=== PATIENT | male | born 1945 | race Caucasian/White ===

== ENCOUNTER → 2017-10-23 15:34 | Outpatient (CLI) | payer MEDICARE, SELFPAY ==
--- NOTE | 2017-10-23 15:37 | CT_ITS ---
STUDY: CT ABDOMEN AND PELVIS WITH CONTRAST REASON FOR EXAM: Male, 72 years old. Prostate cancer, hernia repair, CABG RADIATION DOSAGE (If Supplied By Facility): CTDIvol = ( 20.60 ) mGy, DLP = ( 930.24 ) mGycm TECHNIQUE: Transaxial images were obtained from the dome of the diaphragm to the symphysis pubis without oral contrast. 100ML ml of Isovue 300 contrast was administered. Sagittal and coronal images were reconstructed. Individualized dose optimization techniques were used for this CT. COMPARISON: None. FINDINGS: Nonspecific peripheral left lung base nodular densities up to 5 mm. The visualized portions of the heart are within normal limits. Normal liver. Cholelithiasis. No significant dilatation of the extrahepatic biliary system. Normal spleen. Normal pancreas. Normal bilateral adrenal glands. Normal right kidney. Normal left kidney. Small hiatal hernia. Normal small intestine. Normal colon. The appendix is not visualized. Mildly calcified abdominal aorta. Normal inferior vena cava. Normal retroperitoneum. Normal urinary bladder. The prostate is 3.7 x 4.9 cm Normal abdominal wall. Degenerative vertebral changes with scoliosis. Grade 1 spondylolisthesis at L3-4. CT/Abdomen/Pelvis WITH Contrast IMPRESSION: Nonspecific left lung base nodular densities. Cholelithiasis. Small hiatal hernia. Electronically Signed: Kenneth Ricci DO at 22:25 EST Tel [phone], Service support ,
[2017-10-23 17:26] LABS: CREATININE FINGERSTICK 1.1 mg/dL (0.70-1.30)
== END ==
PROVIDERS: Family Provider Family Medicine; PCP Family Medicine; Visit Provider Urology
DX: C61 Malignant neoplasm of prostate (principal)
CPT/HCPCS: 74177; Q9967

== ENCOUNTER → 2017-10-27 08:17 | Outpatient (CLI) | payer MEDICARE, SELFPAY ==
--- NOTE | 2017-10-27 08:19 | NM_ITS ---
CLINICAL: 72-year-old male with reported history of recent diagnosis of primary prostate carcinoma. WHOLE BODY 99m Tc MDP RADIONUCLIDE BONE SCINTIGRAPHY COMPARISON: CT of the abdomen-pelvis report 10/23/2017 FINDINGS: Following the intravenous administration of 27.0 mCi of 99m Tc MDP, whole body bone images reveal: 1. Increased radiopharmaceutical concentration is identified in the acromioclavicular and glenohumeral compartments of both shoulders, sternoclavicular compartment of the left shoulder, mid cervical spine posteriorly on the right, second-fifth lumbar vertebra posteriorly on the left and right, bilateral wrist articulations, the left knee. 2. The remaining skeletal structures are scintigraphically unremarkable with normal-appearing renal images and urinary bladder activity identified. There is calcification of the bilateral costochondral junctions. NM/Bone Scan Whole Body IMPRESSION: 1. The increased radiopharmaceutical concentration defined in the bilateral shoulders, cervical and lumbar spine, right and left wrist articulations, the left knee is most consistent with degenerative arthritis. 2. There is no definitive typical scintigraphic evidence of skeletal metastatic disease on the current evaluation. Electronically Signed: Uche Arias DO at 10:28 EST Tel , Service support ,
== END ==
PROVIDERS: Family Provider Family Medicine; PCP Family Medicine; Visit Provider Urology
DX: C61 Malignant neoplasm of prostate (principal)
CPT/HCPCS: 78306

== ENCOUNTER → 2018-01-18 06:50 | Outpatient (CLI) | payer MEDICARE, SELFPAY ==
--- NOTE | 2018-01-18 06:52 | ECHOD_ITS ---
Reason For Study: S/P CABG and MVR Procedure This was a 2D Doppler, Color Flow transthoracic echocardiogram. Exam performed in department. Left Ventricle Normal LV size. The estimated ejection fraction is 55 %. Transmitral and pulmonary venous doppler flow suggestive of elevated left atrial pressure. Transmitral diastolic flow velocities suggest mild (stage 1) diastolic dysfunction (reversed pattern). No regional wall motion abnormalities noted. Right Ventricle Normal RV size. Normal systolic function. Atria The left atrium is moderately enlarged. Normal right atrium. Mitral Valve Bileaflet diffuse mitral valve thickening. Mild-Moderate (1-2+) eccentric mitral valve insufficiency. Tricuspid Valve Normal tricuspid valve. Mild tricuspid valve insufficiency. Aortic Valve Trisinus/trileaflet aortic valve. Moderate diffuse aortic valve thickening. Pulmonic Valve The pulmonic valve is not well visualized. Great Vessels Normal aortic root. The pulmonary artery is normal size. Normal inferior vena cava. Pericardium/Pleural No pericardial effusion. MMode/2D Measurements & Calculations LVIDd: 4.6 cm IVSd: 1.1 cm LVOT diam: 2.5 cm LVIDs: 3.2 cm LVPWd: 1.1 cm LVOT area: 4.8 cm2 RVDd: 4.1 cm FS: 31.0 % Ao root diam: 3.6 cm LAV(MOD-bp): 95.3 ml LA A4 area: 25.4 cm2 LA dimension: 4.8 cm LAV(MOD-bp) Indexed: 47.3 ml/m2 LAV(MOD-sp2): 111.4 ml LAV(MOD-sp4): 85.8 ml RA A4 area: 17.5 cm2 Doppler Measurements & Calculations MV E max steve: 73.3 cm/sec Lat Peak E' Steve: 5.4 cm/sec Med Peak E' Steve: 5.0 cm/sec MV A max steve: 87.9 cm/sec E/E' lat: 13.7 E/E' med: 14.8 MV E/A: 0.83 Ao V2 max: 186.6 cm/sec LV V1 max: 91.8 cm/sec SV(LVOT): 99.4 ml Ao max P.9 mmHg LV V1 max P.4 mmHg Ao V2 mean: 136.0 cm/sec LV V1 mean P.8 mmHg Ao mean P.0 mmHg LV V1 mean: 62.6 cm/sec Ao V2 VTI: 39.2 cm LV V1 VTI: 20.7 cm LIN(I,D): 2.5 cm2 LIN(V,D): 2.4 cm2 PA V2 max: 131.0 cm/sec PI end-d steve: 76.1 cm/sec TR max steve: 212.7 cm/sec TR max P.2 mmHg Interpretation Summary Normal LV size. The estimated ejection fraction is 55 %. Transmitral and pulmonary venous doppler flow suggestive of elevated left atrial pressure. Mild-Moderate (1-2+) eccentric mitral valve insufficiency. Mild tricuspid valve insufficiency. Ordering Physician: Cristian Ramirez Referring Physician: Harris Sanchez Performed By: Norma Chatman, ILENE, RVT
--- NOTE | 2018-01-18 17:09 | STRESSREP ---
Stress Test Report Pharmacologic myocardial perfusion stress test. 72-year-old man for preoperative cardiac evaluation. Stress protocol: Resting EKG demonstrates normal sinus rhythm with rate of 65 bpm resting blood pressure is 162/100 mmHg. 0.4 mg regadenoson was infused per usual protocol followed by rapid intravenous saline flush injection continuous EKG monitoring was performed. The maximum heart rate attained was 99 bpm which was 66% of maximum predicted heart rate the maximum workload attained was 1 metabolic equivalent. At rest there were no ST or T-wave changes noted suggest abnormal flow reserve at peak infusion no ST or T-wave changes were noted suggest abnormal flow reserve. No clinical angina was noted. Myocardial perfusion protocol: 11.4 mCi of technetium 99m sestamibi was injected at rest. 0.4 mg regadenoson was infused per usual protocol. At peak infusion 33.1 mCi of technetium 99m sestamibi was injected stress images were obtained stress and rest images were reconstructed and compared in the short axis vertical long and horizontal long axis. Gated images were also obtained. Perfusion SPECT analysis: Review of the stress images demonstrate normal uptake of tracer noted in all areas of the myocardium. The resting images similarly demonstrate normal uptake of tracer noted in all areas of the myocardium. No areas of reversibility are noted suggest ischemia no previous infarct is noted. Gated SPECT analysis: The gated ejection fraction is estimated to be 45%. Conclusion: Normal pharmacologic myocardial perfusion stress test with no evidence of ischemia. Borderline left ventricular function.
== END ==
PROVIDERS: Family Provider Family Medicine; PCP Family Medicine; Visit Provider Internal Medicine Cardiovascular Disease
DX: I48.0 Paroxysmal atrial fibrillation (principal); I25.10 Atherosclerotic heart disease of native coronary artery without angina pectoris; Z95.1 Presence of aortocoronary bypass graft; Z95.2 Presence of prosthetic heart valve
CPT/HCPCS: 78452; 93017; 93306; A9500; A4216; J2785

== ENCOUNTER 2018-01-20 05:45 | Inpatient (IN) | payer MEDICARE, SELFPAY ==
[2018-01-14 11:17] VITALS: BP 126/84; PULSE 62; RESP 16; TEMP 36.8; O2SAT 100; BMI 25.2
--- NOTE | 2018-01-14 11:34 | SDCEKG_ITS ---
Test Reason : Blood Pressure : / mmHG Vent. Rate : 059 BPM Atrial Rate : 059 BPM P-R Int : 178 ms QRS Dur : 098 ms QT Int : 440 ms P-R-T Axes : 073 -03 026 degrees QTc Int : 435 ms Sinus bradycardia with occasional Premature ventricular complexes Possible Inferior infarct , age undetermined Abnormal ECG Confirmed by ALDO ROSARIO, ROHAN ([id number]), film editor supervisor ANGELA FALCON ([id number]) on 01/19/2018 3:36:58 PM Referred By: Nathaniel Corley Confirmed By:ROHAN CARLSON MD
[2018-01-14 12:19] LABS: Hematocrit 40.5 % (40-54); Hemoglobin 13.3 g/dl (13.0-16.5); Mean Corp Hgb Conc 32.8 g/gl (32-36); Mean Corpuscular Hgb 27.7 pg (27.0-32.0); Mean Corpuscular Volume 84.4 fL (80-94); Mean Platelet Vol. 10.5 fl (6.2-12.0); Platelet Count 209 K/mm3 (150-450); RBC Distribution Width CV 14.5 % (11.6-14.6); RBC Distribution Width SD 44.1 fl (35.1-43.9); White Blood Count 5.6 K/mm3 (4.4-11.0)
[2018-01-14 12:21] LABS: Scan Indicated on CBC? Y/N NO
[2018-01-14 12:23] LABS: International Normalized Ratio 1.1; Prothrombin Time (Protime)PT. 13.9 SECONDS (11.7-14.9)
[2018-01-14 12:48] LABS: AST(SGOT) 25 U/L (15-37); Alanine Aminotransfer ALT/SGPT 30 U/L (16-61); Albumin, Serum 3.4 g/dL (3.2-5.0); Alkaline Phosphatase 56 U/L (45-117); Anion Gap 7 (5-15); BUN 17 mg/dL (7-18); Bilirubin, Direct 0.17 mg/dL (0.00-0.30); Calcium,Total 8.7 mg/dL (8.5-10.1); Chloride 110 mmol/L (98-107); Creatinine, Serum 1.06 mg/dL (0.70-1.30); EST Glomerular Filtration Rate 73 mL/min (>60); Est Glom Filt Rate - Afr Amer 88 mL/min (>60); Estimated Creatinine Clearance 68.08 ml/min; Globulin 3.4 g/dL (2.2-4.2); Glucose 95 mg/dL (74-106); Potassium 4.7 mmol/L (3.5-5.1); Protein, Total 6.8 g/dL (6.4-8.2); Sodium Level 143 mmol/L (136-145); Thyroid Stim Hormone (TSH) 0.09 uIU/mL (0.358-3.74)
[2018-01-20] VITALS (14 sets, daily range): BP systolic 105–149; BP diastolic 72–93; PULSE 61–77; RESP 15–18; TEMP 36.4–37.1; O2SAT 94–98; BMI 25.2; BMI 25.1
--- NOTE | 2018-01-20 | IMM_PTH ---
PATIENT: KERRIE AVILES LOC: MS3 U#:[id number] AGE/SX: 72/M ROOM: MS317 RE01/20/[address]: Dr. Nathaniel Corley MD : 1945 BED: 1 DIS: 01/22/2018 SPEC #: [id number] RECD: 02/04/18 09:29 STATUS: PRAVEEN REXin #: [id number] KODI: 01/20/18 00:[address]: Nathaniel Corley DEPT: IMMUNOHISTOCHEMISTRY RECD BY: Natalie Hutchison ENTERED: 02/04/18 09:31 SP TYPE: IMMUNO OTHR DR: Dr. Harris Sanchez MD Tissues: A - Prostate, NOS Procedures: CD31 (add) CD34 (add) PSA (add) Factor VIII (initial) PHYSICIAN & INSTITUTION [place] [id number] SPECIMEN INFORMATION: Tissue Source: A ? Prostate, radical prostatectomy Clinical Info: Prostate cancer, elevated PSA Specimen Number: [id number] CPT code: 52681, 76722 x3 METHODOLOGY: Deparaffinized sections of prefer/formalin-fixed tissue or PAP/DQ stained slides are incubated with monoclonal/polyclonal antibodies/oligonucleotide probes. Localization is made via biotin free immunoperoxidase method. Appropriate controls are performed and reacted as expected. Results on target cell population are indicated in the following table: RESULTS: ANTIBODY / CLONE RESULT Block A3 Factor VIII (R Ag) negative CD31 (KIM/70A) * PSA (ER-PR8) positive CD34 (QBEnd-10) negative *?noncontributory These tests were developed and their performance characteristics determined by [facility]. They may not have been cleared or approved by the U.S. Food and Drug Administration. The FDA has determined that such clearance or approval is not necessary. INTERPRETATION: A. Prostate, radical prostatectomy: No definitive evidence of vascular invasion seen. AM:katarzyna 02/05/18 Case has been reviewed in consultation with Dr. Ellison who concurs with the above diagnosis. IDC:[id number]
--- NOTE | 2018-01-20 07:30 | PROST_PTH ---
PATIENT: KERRIE AVILES LOC: MS3 U#:[id number] AGE/SX: 72/M ROOM: FL317 RE01/20/[address]: Dr. Nathaniel Corley MD : 1945 BED: 1 DIS: 01/22/2018 SPEC #: [id number] RECD: 01/20/18 11:48 STATUS: PRAVEEN SIMON #: [id number] KODI: 01/20/18 07:[address]: Nathaniel Corley DEPT: SURGICAL PATHOLOGY RECD BY: Nicki Dao ENTERED: 01/20/18 12:49 SP TYPE: PROSTATE OTHR DR: Dr. Harris Sanchez MD Tissues: A - Prostate, NOS B - Lymph node of pelvis, NOS C - Lymph node of pelvis, NOS D - Adipose tissue Procedures: Surgery Specimen Level IV Surgery Specimen Level V HEADER OPERATION: Laparoscopic robotic radical prostatectomy PRE-OP DIAGNOSIS: Prostate cancer; elevated PSA TISSUE SUBMITTED: A ? Prostate, B ? Right pelvic lymph node, C ? Left pelvic lymph node, D ? Fat over prostate MICROSCOPIC DIAGNOSIS A. Prostate, radical prostatectomy: Adenocarcinoma. See cancer checklist below. B. Right pelvic lymph node, biopsy: One out of one lymph node negative for carcinoma. C. Left pelvic lymph node, biopsy: One out of one lymph node negative for carcinoma. D. Fat over prostate, biopsy: Mature adipose tissue. No evidence of malignancy. AM:katarzyna 01/22/18 COMMENT PROSTATE CANCER (RADICAL) SUMMARY: Procedure ? radical prostatectomy Prostate size ? 4.4 x 4.2 x 3.5 cm Prostate weight ? 41.6 gm Lymph node sampling ? pelvic lymph node dissection (2 out of 2 negative for carcinoma) Histologic type - adenocarcinoma Histologic grade ([place] Pattern): Primary pattern - 4 Secondary pattern - 3 Tertiary pattern - 5 Total Kimberley score - 7 Tumor Quantitation: Tumor size - 4 x 2 x 1.5 cm Extraprostatic extension ? present, focal Seminal vesicle invasion ? present (bilateral) Margins ? margins are uninvolved by invasive carcinoma. Treatment effect on carcinoma ? not identified Lymph-Vascular invasion ? not identified Perineural invasion ? present (extensive) Regional lymph nodes - 2 Number examined - 2 Number involved - 0 Distant metastasis - unknown Additional pathologic findings ? benign nodular hyperplasia and focal HGPIN Ancillary studies ? not performed PATHOLOGIC STAGE: pT3b N0 Mx The above summary is in compliance with [employer] [place] [employer] (CAP) Cancer Protocols Checklist and [place] [employer] Committee on Cancer (AJCC), Staging Manual, 8th Ed. MICROSCOPIC DESCRIPTION Slides are reviewed. GROSS DESCRIPTION A - Received in fixative is one container labeled with the patient's name and designated prostate. The specimen consists of a prostate with attached right and left seminal vesicles and vas deferens. The specimen measures 6 cm in greatest dimension. The prostate measures 4.2 cm superior-inferiorly, 4.4 cm transversely, and 3.5 cm anterior-posteriorly. The apex of the gland is conical in shape. On palpation, no mass lesions are identified. The gland weighs 41.6 gm. The specimen is differentially inked as follows: anterior ? red, right half ? blue, left half ? green, and posterior portion of the entire gland in black. The gland is cut from apex of gland to base of gland at approximately 3 to 4 mm intervals. Sections reveal white cut surfaces. No distinct gross mass lesion is seen. Distribution Operations Supervisor sections are submitted as follows: 1 ? apex (distal urethral margin shave), 2 ? bladder shave (proximal urethra margin), 3 ? right and left seminal vesicles, 4 & 5 ? most distal prostatic section, 6 & 7 ? apex of gland, 913 ? mid portion of gland, 14-20 ? basal portion of gland. B - Received in fixative is one container labeled with the patient's name and designated right pelvic lymph node. The specimen consists of an irregular fragment of yellow soft tissue measuring 2.5 x 1.5 x 1 cm. The specimen is sectioned and totally submitted in two cassettes. C - Received in fixative is one container labeled with the patient's name and designated left pelvic lymph node. The specimen consists of an irregular fragment of yellow soft tissue measuring 2.5 x 1.5 x 0.6 cm. The specimen is bisected along its larger axis and totally submitted in one cassette. D - Received in fixative is one container labeled with the patient's name and designated fat over prostate. The specimen consists of an irregular fragment of yellow fatty tissue measuring 1.5 x 1 x 0.2 cm. The specimen is totally submitted in one cassette. / AM:katarzyna 01/21/18 TC:0 CPT: 25459, 92669 x3
[2018-01-20] MEDS: Cefazolin 2 GM in 0.9% Normal Saline 100 ML IV (07:33)
[2018-01-20] MEDS: Bupivacaine Mpf 0.5% 30 ML VIAL (11:03)
--- NOTE | 2018-01-20 11:11 | PCM.OPRPT ---
Report of Operation Date of Procedure: 01/20/18 Pre-Operative Diagnosis: Prostate cancer, BPH with obstruction Post-Operative Diagnosis: Same Surgery/Procedure Performed:: Laparoscopic robotic assisted radical prostatectomy, bilateral pelvic lymph node dissection, suture suspension of the urethra, EMG monitoring of the pelvic nerves and sphincter Description of Surgical Findings:: 72-year-old male who had a high volume of prostate cancer [place] disease we talked about the options of management for his prostate cancer including radiation therapy and hormone ablation therapy. Talked about the options of management we talked about the side effects of surgery including incontinence loss of erections failure to cure his cancer he understands he may need such as more treatments of the cancer persists radiation and hormone therapy. 72-year-old male taken back to the operating room after smooth induction of general anesthesia he was placed supine on the table and will place him in lithotomy for robotic prostatectomy. Abdomen was shaved prepped and draped in usual sterile fashion insufflated the peritoneum with CO2 gas placed the camera trocar right and left arm trochars air seal port and suction trocar. I then dissected the posterior aspect of the prostate dissected the seminal vesicles and vas deferens on both sides, dropped the bladder and created the space of Retzius, incised the lateral pelvic fascia and dissected all the way up to the apex of the prostate we place a stitch in the dorsal vein. I then dissected the lymph nodes on the right side and the lymph nodes in the left side is a complete dissection. I then transected between the prostate and the bladder coming down to the urethra pulled the catheter up transected posterior between the prostate and the bladder on the right side we then clipped the pedicle to the prostate I then released the neurovascular bundle on the right side and released it all the way to the apex. Went to the left side clipped the pedicle of the prostate in the left side and released the neurovascular bundle all the way to the left side. We then placed electrodes in the pelvic sidewall checked for the pudendal nerve and pelvic nerves and these were intact after the dissection we then tacked the urethra and the repeat urethra was still intact with good response. I then completed the suture suspension of the urethra to prevent incontinence this was done from the urethra at the 6:00 to the 12 o'clock position over a catheter between the bladder neck and urethra after suspending the urethra up I then checked and the anastomosis for leakage and there was a little bit leakage on the right side put an extra stitch checked again there is another little leakage to check another stitch. After completing this anastomosis then the prostate was extracted through the umbilical port we closed the 1012 trocar with a Rob Campo stitch placed a drain in the pelvis patient's anesthetic was reversed and is taken back to PACU in good condition. Type of Anesthesia:: General Drains: BENAVIDEZ, ISABELLE DRAIN. - Admit VTE Documentation VTE Present on Admission: No VTE Mechan Device Prophylaxis: SCD's VTE Pharm Prophylaxis ordered?: No Reason prophylaxis not ordered:: Treatment Not Indicated
[2018-01-20] MEDS: Ketorolac 15 MG/ML Vial IV ×3 (12:16→23:59)
[2018-01-20] MEDS: Lactated Ringers 1,000 ML 125 ML IV ×2 (12:40→21:23)
[2018-01-20] MEDS: Acetaminophen 500 MG Tablet PO ×3 (14:57→21:30)
[2018-01-20] MEDS: Ciprofloxacin 400 MG/200 ML BAG 200 MG IV ×2 (14:57→21:23)
[2018-01-20] MEDS: 0.9% NaCl Peripheral Flush Adult/Peds IV (18:10)
[2018-01-20] MEDS: Atorvastatin Calcium 20 MG Tablet PO (21:24)
[2018-01-20] MEDS: Metoprolol Tartrate 25 MG Tablet 12.5 MG PO (21:25)
[2018-01-21] VITALS (8 sets, daily range): BP systolic 126–133; BP diastolic 80–89; PULSE 71–81; RESP 16–18; TEMP 36.8–37.6; O2SAT 92–97
[2018-01-21] MEDS: Acetaminophen 500 MG Tablet PO ×6 (02:44→22:08)
[2018-01-21 06:06] LABS: Hemoglobin 11.9 g/dl (13.0-16.5); Mean Corp Hgb Conc 33.1 g/gl (32-36); Mean Corpuscular Hgb 27.9 pg (27.0-32.0); Mean Corpuscular Volume 84.5 fL (80-94); Mean Platelet Vol. 10.1 fl (6.2-12.0); Platelet Count 162 K/mm3 (150-450); RBC Distribution Width CV 14.1 % (11.6-14.6); RBC Distribution Width SD 42.7 fl (35.1-43.9); Red Blood Count 4.26 M/mm3 (4.6-6.2); White Blood Count 7.4 K/mm3 (4.4-11.0)
[2018-01-21 06:11] LABS: Scan Indicated on CBC? Y/N NO
[2018-01-21] MEDS: Ketorolac 15 MG/ML Vial IV ×3 (06:11→18:15)
[2018-01-21] MEDS: Lactated Ringers 1,000 ML 125 ML IV ×3 (06:11→22:09)
[2018-01-21] MEDS: Levothyroxine 50 MCG Tablet PO (06:11)
[2018-01-21 06:23] LABS: Anion Gap 8 (5-15); BUN 14 mg/dL (7-18); BUN/Creat Ratio 14.1 RATIO (10-20); Calcium,Total 8.3 mg/dL (8.5-10.1); Chloride 107 mmol/L (98-107); Creatinine, Serum 0.99 mg/dL (0.70-1.30); EST Glomerular Filtration Rate 79 mL/min (>60); Est Glom Filt Rate - Afr Amer 95 mL/min (>60); Estimated Creatinine Clearance 72.89 ml/min; Glucose 99 mg/dL (74-106); Potassium 4.3 mmol/L (3.5-5.1); Sodium Level 140 mmol/L (136-145)
[2018-01-21] MEDS: Multivitamins,Therapeutic Tablet 1 TABLET PO (08:17)
[2018-01-21] MEDS: Metoprolol Tartrate 25 MG Tablet 12.5 MG PO ×2 (09:17→22:09)
[2018-01-21] MEDS: Lisinopril 2.5 MG Tablet PO (09:17)
[2018-01-21] MEDS: 0.9% NaCl Peripheral Flush Adult/Peds IV ×2 (13:12→18:15)
[2018-01-21] MEDS: Atorvastatin Calcium 20 MG Tablet PO (22:08)
[2018-01-22] MEDS: Acetaminophen 500 MG Tablet PO ×4 (02:54→15:08)
[2018-01-22 03:02] VITALS: BP 137/94; PULSE 73; RESP 18; TEMP 36.6; O2SAT 92
[2018-01-22] MEDS: Levothyroxine 50 MCG Tablet PO (05:55)
[2018-01-22] MEDS: Lactated Ringers 1,000 ML 125 ML IV (05:55)
[2018-01-22 07:57] VITALS: O2SAT 93
--- NOTE | 2018-01-22 08:35 | PCM.PROGNOTE ---
Subjective: Postoperative day #2 status post a radical prostatectomy still has not passed gas abdomen is slightly distended but no nausea or vomiting tolerating a little bit of solid foods but not very much. Pain is under control no fevers or chills - Physical Exam General: Alert, Oriented x3, Cooperative HEENT: Atraumatic, PERRLA, EOMI, Normocephalic Neck: Supple, No JVD, Negative Carotid Bruits Lungs: Clear to auscultation, Normal air movement Cardiovascular: Regular rate, No murmurs Abdomen: Bowel Sounds Present, Soft, Non Tender Extremities: No edema, Capillary Refill Less than 3 Seconds Skin: No rashes, No breakdown Musculoskeletal: No Tenderness to Palpation of Joints or Extremities Neurological: Cranial nerves II-XII grossly intact Psych/Mental Status: Normal Affect, Appropriate Vital Signs Temp Pulse Resp BP Pulse Ox 97.8 F 73 18 137/94 H 93 01/22/18 03:02 01/22/18 03:02 01/22/18 03:02 01/22/18 03:02 01/22/18 07:57 Oxygen Delivery Method Room Air Weight: 81.647 kg Body Mass Index (BMI) 25.1 Intake and Output for Last 24 Hours 01/20/18 01/21/18 01/22/18 23:59 23:59 23:59 Intake Total 3791 / 3791 3012 / 3012 2138 / 2138 Output Total 587 / 587 544 / 544 670 / 670 Balance 3204 / 3204 2468 / 2468 1468 / 1468 Medical Necessity - Tobacco Use Smoking Status: Never smoker Assessment/Plan 72-year-old male status post radical prostatectomy, Dulcolax suppository today, ambulate, possible discharge later today if starts moving his bowels or passes gas.
[2018-01-22 09:00] VITALS: BP 136/86; PULSE 82; RESP 18; TEMP 36.5; O2SAT 95
[2018-01-22] MEDS: Lisinopril 2.5 MG Tablet PO (09:04)
[2018-01-22] MEDS: Bisacodyl 10 MG Suppository RECTAL (09:04)
[2018-01-22] MEDS: Multivitamins,Therapeutic Tablet 1 TABLET PO (09:04)
[2018-01-22 09:06] VITALS: PULSE 82
[2018-01-22] MEDS: Metoprolol Tartrate 25 MG Tablet 12.5 MG PO (09:06)
[2018-01-22 14:20] VITALS: BP 137/92; PULSE 67; RESP 18; TEMP 36.3; O2SAT 92
--- NOTE | 2018-01-22 16:46 | PCM.DC.URO ---
Discharge Diet: Light diet - advance as tolerated Discharge Activity: May Not Drive, May not drive while taking narcotic pain medications., May Shower May shower in (days): 1 Lifting Restrictions: no lifting. Call your doctor if your incision/area has: Continuous Slow Oozing, Sudden Increased Bleeding, Increased Pain/ Swelling, Increased Redness, Foul Smelling Discharge, Swelling at the incision site Call your doctor if you observe: Fever of 101 or Higher, Inability to have a bowel movement, Shortness of breath, Chest pain, Uncontrolled pain Suture Line Care: Avoid Pulling/Pushing, Avoid Pinching/Bending Instructions: Discharge Instructions for Radical Prostatectomy Allergies/Adverse Reactions: Allergies Penicillins [PCN] Allergy (Verified 01/15/18 13:37) Other Medications to take at Discharge Levothyroxine [Synthroid] 50 mcg PO DAILY 01/14/18 Metoprolol Tartrate [Lopressor (beta suyapa)] 12.5 mg PO BID 01/14/18 Multivitamin [Multiple Vitamins] 1 ea PO DAILY 01/14/18 rosuvastatin 10 mg tablet 10 mg PO DAILY tab 01/15/18 Lisinopril [Zestril] 2.5 mg PO QDAY 01/20/18 Ciprofloxacin [Cipro] 500 mg PO BID #20 tab 01/22/18 Docusate Sodium [Colace] 100 mg PO BID #20 cap 01/22/18 Hydrocodone/Acetaminophen [[place] 5-325 Tablet] 1 ea PO Q4H PRN PRN 5 Days #14 tab 01/22/18 The following prescriptions were given: Hydrocodone/Acetaminophen [[place] 5-325 Tablet] 1 ea PO Q4H PRN PRN 5 Days #14 tab PRN Reason: Pain Ciprofloxacin [Cipro] 500 mg PO BID #20 tab Docusate Sodium [Colace] 100 mg PO BID #20 cap Primary Care Physician: Harris Sanchez MD [Primary Care Provider] - Please Follow Up With: Nathaniel Corley MD When: January 28 at 9:00am
[2018-01-22 16:49] VITALS: BP 145/75; PULSE 69; RESP 18; TEMP 36.7; O2SAT 94
--- NOTE | 2018-01-22 16:50 | DCINST_ITS ---
Discharge Diet: Light diet - advance as tolerated Discharge Activity: May Not Drive, May not drive while taking narcotic pain medications., May Shower May shower in (days): 1 Lifting Restrictions: no lifting. Call your doctor if your incision/area has: Continuous Slow Oozing, Sudden Increased Bleeding, Increased Pain/ Swelling, Increased Redness, Foul Smelling Discharge, Swelling at the incision site Call your doctor if you observe: Fever of 101 or Higher, Inability to have a bowel movement, Shortness of breath, Chest pain, Uncontrolled pain Suture Line Care: Avoid Pulling/Pushing, Avoid Pinching/Bending Instructions: Discharge Instructions for Radical Prostatectomy Allergies/Adverse Reactions: Allergies Penicillins [PCN] Allergy (Verified 01/15/18 13:37) Other Medications to take at Discharge Levothyroxine [Synthroid] 50 mcg PO DAILY 01/14/18 Metoprolol Tartrate [Lopressor (beta suyapa)] 12.5 mg PO BID 01/14/18 Multivitamin [Multiple Vitamins] 1 ea PO DAILY 01/14/18 rosuvastatin 10 mg tablet 10 mg PO DAILY tab 01/15/18 Lisinopril [Zestril] 2.5 mg PO QDAY 01/20/18 Ciprofloxacin [Cipro] 500 mg PO BID #20 tab 01/22/18 Docusate Sodium [Colace] 100 mg PO BID #20 cap 01/22/18 Hydrocodone/Acetaminophen [[place] 5-325 Tablet] 1 ea PO Q4H PRN PRN 5 Days #14 tab 01/22/18 The following prescriptions were given: Hydrocodone/Acetaminophen [[place] 5-325 Tablet] 1 ea PO Q4H PRN PRN 5 Days #14 tab PRN Reason: Pain Ciprofloxacin [Cipro] 500 mg PO BID #20 tab Docusate Sodium [Colace] 100 mg PO BID #20 cap Primary Care Physician: Harris Sanchez MD [Primary Care Provider] - Please Follow Up With: Nathaniel Corley MD When: January 28 at 9:00am
--- NOTE | 2018-01-22 16:52 | DS.PCM_ITS ---
Discharge Date and Diagnosis Date of Admission: 01/20/18 Date of Discharge: 01/22/18 - Secondary Discharge Diagnosis Chronic Problems (Last Reviewed 01/15/18 @ 14:04 by Cristian Ramirez MD) Nonrheumatic tricuspid (valve) insufficiency (Chronic) mild per echo 01/18/18 Nonrheumatic mitral (valve) insufficiency (Chronic) Mild to moderate (1-2+) per echo 01/18/18 Paroxysmal atrial fibrillation (Chronic) PVCs (premature ventricular contractions) (Chronic) Ischemic cardiomyopathy (Chronic) History of mitral valve repair (Chronic ~12/13/15) with posterior pericardial annuloplasty ring, hx mitral regurgitation Heart disease, unspecified (Chronic) Atherosclerotic heart disease of [place] coronary artery without angina pectoris (Chronic) BETANCOURT to LAD, Free PREETHI to Lateral Circumflex 12/13/2015 at [place]. H/O coronary artery bypass surgery (Chronic ~12/13/15) BETANCOURT to LAD, Free PREETHI to Lateral Circumflex 12/13/2015 at [place]. Hospital Course and Treatment Operations: - - Robotic radical prostatectomy Procedures: None Summary of Care Provided: The patient is a 72 year old male with prostate cancer who underwent a robotic radical prostatectomy postoperative day #1 ISABELLE output was normal and low, ISABELLE was removed on postoperative day #2 on postoperative day #2 he was given a suppository was unable to pass gas have liquid bowel movement abdomen is soft slightly distended tolerating regular food. Diet was somewhat suppressed could not tolerate a full meal but he was taking liquids and solids. Urine was clear Belle catheter in place. We will discharge him home with instructions to slowly advance diet. He will start with a liquid diet and slowly moved to a solid diet once his bowels move and he passes more gas. He will go home with a prescription for [place], Colace, and Cipro and will give him a follow-up next week to remove the catheter. He will go home with a catheter today. Discharge Diet: Light diet - advance as tolerated Discharge Activity: May Not Drive, May not drive while taking narcotic pain medications., May Shower May shower in (days): 1 Call your doctor if your incision/area has: Continuous Slow Oozing, Sudden Increased Bleeding, Increased Pain/ Swelling, Increased Redness, Foul Smelling Discharge, Swelling at the incision site Call your doctor if you observe: Fever of 101 or Higher, Inability to have a bowel movement, Shortness of breath, Chest pain, Uncontrolled pain Suture Line Care: Avoid Pulling/Pushing, Avoid Pinching/Bending Home Medications: Medications to take at Discharge Levothyroxine [Synthroid] 50 mcg PO DAILY 01/14/18 Metoprolol Tartrate [Lopressor (beta suyapa)] 12.5 mg PO BID 01/14/18 Multivitamin [Multiple Vitamins] 1 ea PO DAILY 01/14/18 rosuvastatin 10 mg tablet 10 mg PO DAILY tab 01/15/18 Lisinopril [Zestril] 2.5 mg PO QDAY 01/20/18 Ciprofloxacin [Cipro] 500 mg PO BID #20 tab 01/22/18 Docusate Sodium [Colace] 100 mg PO BID #20 cap 01/22/18 Hydrocodone/Acetaminophen [[place] 5-325 Tablet] 1 ea PO Q4H PRN PRN 5 Days #14 tab 01/22/18 Following Prescrptions Were Given to Patient: Hydrocodone/Acetaminophen [[place] 5-325 Tablet] 1 ea PO Q4H PRN PRN 5 Days #14 tab PRN Reason: Pain Ciprofloxacin [Cipro] 500 mg PO BID #20 tab Docusate Sodium [Colace] 100 mg PO BID #20 cap Primary Care Physician: Harris Sanchez MD [Primary Care Provider] - Please Follow Up With: Nathaniel Corley MD When: January 28 at 9:00am Patient Instructions: Discharge Instructions for Radical Prostatectomy Medical Necessity - Tobacco Use Smoking Status: Never smoker Meaningful Use Info Meaningful Use Diagnoses (Choose all that apply): None applicable
== END 2018-01-22 17:34 | disposition home or self-care (01) | DRG 707 ==
LOC: ACINP 09:26 → MS3 09:59
PROVIDERS: Admitting Provider Urology; Family Provider Family Medicine; PCP Family Medicine; Visit Provider Urology
PROC: 0VT04ZZ Resection of Prostate, Percutaneous Endoscopic Approach (ICD-10-PCS; CPT 55866; principal; 2018-01-20 07:10)
DX: C61 Malignant neoplasm of prostate (principal); N13.8 Other obstructive and reflux uropathy; N40.1 Benign prostatic hyperplasia with lower urinary tract symptoms; R35.1 Nocturia; I25.10 Atherosclerotic heart disease of native coronary artery without angina pectoris; I48.0 Paroxysmal atrial fibrillation; E78.00 Pure hypercholesterolemia, unspecified; Z79.02 Long term (current) use of antithrombotics/antiplatelets; Z79.82 Long term (current) use of aspirin; Z79.899 Other long term (current) drug therapy; Z95.1 Presence of aortocoronary bypass graft; Z95.2 Presence of prosthetic heart valve; I25.5 Ischemic cardiomyopathy
CPT/HCPCS: 36415; 78452; 80048; 80076; 84443; 85027; 85610; 85730; 88304; 88305; 88307; 88309; 88341; 88342; 93005; 93017; 93306; 94762; A9500; J7120; A4216; J0744; J2405; J2785

== ENCOUNTER 2020-11-26 07:50 | Outpatient (RCR) | payer MEDICARE, SELFPAY ==
[2020-08-01 14:55] VITALS: BMI 25.8
== END 2020-11-26 23:59 ==
LOC: IMMUN 07:50
PROVIDERS: PCP Family Medicine; Visit Provider Family Medicine
DX: Z23 Encounter for immunization (principal)
CPT/HCPCS: 0011A; 0012A

== ENCOUNTER 2021-10-18 10:47 | Outpatient (CLI) | payer MEDICARE, SELFPAY ==
[2021-10-18 11:38] LABS: AST(SGOT) 29 U/L (15-37); Alanine Aminotransfer ALT/SGPT 41 U/L (16-61); Albumin, Serum 3.5 g/dL (3.2-5.0); Alkaline Phosphatase 60 U/L (45-117); Anion Gap 3 (5-15); BUN 18 mg/dL (7-18); BUN/Creat Ratio 13.7 RATIO (10-20); Bilirubin, Direct 0.19 mg/dL (0.00-0.30); Calcium,Total 9.1 mg/dL (8.5-10.1); Chloride 110 mmol/L (98-107); Cholesterol 168 mg/dL (200); Creatinine, Serum 1.31 mg/dL (0.70-1.30); EST Glomerular Filtration Rate 57 mL/min (>60); Est Glom Filt Rate - Afr Amer 69 mL/min (>60); Globulin 3.6 g/dL (2.2-4.2); Glucose 108 mg/dL (74-106); High Density Lipoprotein 76 mg/dL; Potassium 4.9 mmol/L (3.5-5.1); Protein, Total 7.1 g/dL (6.4-8.2); Sodium Level 140 mmol/L (136-145); Triglycerides 65 mg/dL; Very Low Density Lipoprotein 13 mg/dL (5-40)
== END 2021-10-18 23:59 | disposition short-term general hospital (02) ==
LOC: LAB 10:52
PROVIDERS: PCP Family Medicine; Referring Provider Internal Medicine Cardiovascular Disease; Visit Provider Internal Medicine Cardiovascular Disease
DX: I25.10 Atherosclerotic heart disease of native coronary artery without angina pectoris (principal); Z95.1 Presence of aortocoronary bypass graft; Z98.890 Other specified postprocedural states
CPT/HCPCS: 36415; 80048; 80061; 80076

== ENCOUNTER 2021-11-07 06:20 | Outpatient (CLI) | payer MEDICARE, SELFPAY ==
--- NOTE | 2021-11-07 06:25 | ECHOD_ITS ---
Reason For Study: CAD/ASHD Procedure This was a 2D Doppler, Color Flow transthoracic echocardiogram. Exam performed in department. Left Ventricle Normal LV size. Left ventricular systolic function is normal. The estimated ejection fraction is 55 %. Stage 1 diastolic dysfunction. No regional wall motion abnormalities noted. Right Ventricle Normal RV size. Normal systolic function. Atria Normal left atrium. Normal right atrium. Mitral Valve Bileaflet diffuse mitral valve thickening. Status post mitral valve repair with annuloplasty ring. Tricuspid Valve Normal tricuspid valve. Mild (1+) tricuspid valve insufficiency. Pulmonary artery systolic pressure is 24 mmHg. Aortic Valve Trisinus/trileaflet aortic valve. Mild diffuse aortic valve thickening. Pulmonic Valve Normal pulmonic valve. Mild (1+) pulmonic valve insufficiency. Great Vessels Normal aortic root. The pulmonary artery is normal size. Normal inferior vena cava. Pericardium/Pleural No pericardial effusion. MMode/2D Measurements & Calculations LVIDd: 4.8 cm IVSd: 1.1 cm LVOT diam: 2.4 cm LVIDs: 3.5 cm LVPWd: 0.99 cm LVOT area: 4.6 cm2 RVDd: 4.0 cm FS: 27.9 % Ao root diam: 3.3 cm LAV(MOD-bp): 78.7 ml Aortic Valve Planimetry: 1.7 cm2 LAV(MOD-bp) Indexed: 39.1 ml/m2 LAV(MOD-sp2): 79.4 ml LAV(MOD-sp4): 75.9 ml LA dimension(2D): 5.9 cm LA A4 area: 22.9 cm2 RA A4 area: 19.9 cm2 Time Measurements MV dec time: 0.21 sec Doppler Measurements & Calculations MV E max steve: 76.1 cm/sec Lat Peak E' Steve: 10.1 cm/sec Med Peak E' Steve: 6.7 cm/sec MV A max steve: 77.5 cm/sec E/E' lat: 7.5 E/E' med: 11.3 MV E/A: 0.98 Ao V2 max: 228.3 cm/sec LV V1 max: 77.2 cm/sec SV(LVOT): 85.6 ml Ao max P.9 mmHg LV V1 max P.4 mmHg Ao V2 mean: 174.5 cm/sec LV V1 mean P.5 mmHg Ao mean P.0 mmHg LV V1 mean: 58.5 cm/sec Ao V2 VTI: 48.7 cm LV V1 VTI: 18.7 cm LIN(I,D): 1.8 cm2 LIN(V,D): 1.5 cm2 PA V2 max: 133.1 cm/sec TR max steve: 223.0 cm/sec PI dec slope: 156.6 cm/sec2 TR max P.9 mmHg ECHO/Echo Complete Interpretation Summary Status post mitral valve repair with annuloplasty ring. Normal LV size. Left ventricular systolic function is normal. The estimated ejection fraction is 55 %. Stage 1 diastolic dysfunction. Pulmonary artery systolic pressure is 24 mmHg. Mild diffuse aortic valve thickening. Ordering Physician: Cristian Ramirez Referring Physician: Harris Sanchez Performed By: Juanita Allen, ILENE, RVT
--- NOTE | 2021-11-07 16:35 | STRESSREP ---
Stress Test Report Exercise myocardial perfusion stress test. 76-year-old man with a history of coronary artery disease and chest pain. Medications aspirin metoprolol lisinopril. Resting EKG demonstrates normal sinus rhythm with a rate of 64 bpm normal intervals are noted resting blood pressure is 114/78 mmHg. Patient exercised according to regular Faustino protocol for total duration of 6 minutes the maximum heart rate attained was 139 bpm which was 95% of max impact at heart rate the maximum workload was 7 metabolic equivalents. At rest there were no ST or T wave changes noted to suggest ischemia and at peak exercise upsloping ST changes were noted with did not meet the criteria for ischemia. The peak blood pressure was 170/80 mmHg the test was terminated because the target heart rate was achieved. Myocardial perfusion protocol. 11.8 mCi of technetium 99m sestamibi was injected at rest. Patient was exercised according to regular Faustino protocol for 6 minutes and at peak exercise 34.3 mCi of technetium 99m sestamibi was injected stress images were obtained stress and rest images were reconstructed and compared in the short axis vertical long horizontal long axis. Gated images were also obtained Perfusion SPECT analysis: Review of the stress images demonstrate normal uptake of tracer noted in all areas of the myocardium. The resting images similarly demonstrate normal uptake of tracer noted in all areas of the myocardium. No obvious areas of reversibility are noted to suggest ischemia and no previous infarct is noted. Gated SPECT analysis: The gated ejection fraction is noted to be 51%. Conclusion: Normal exercise myocardial perfusion stress test at a moderate workload. Preserved ejection fraction.
== END 2021-11-07 23:59 | disposition home or self-care (01) ==
PROVIDERS: PCP Family Medicine; Referring Provider Internal Medicine Cardiovascular Disease; Visit Provider Internal Medicine Cardiovascular Disease
DX: I25.10 Atherosclerotic heart disease of native coronary artery without angina pectoris (principal); Z95.1 Presence of aortocoronary bypass graft
CPT/HCPCS: 78452; 93017; 93306; A9500; A4216

== ENCOUNTER 2021-12-04 09:07 | Outpatient (CLI) | payer MEDICARE, SELFPAY ==
--- NOTE | 2021-12-04 09:30 | PET_ITS ---
EXAMINATION: FDG PET/CT INDICATIONS: A 76-year-old male with reported history of carcinoma of the prostate presenting for restaging examination. COMPARISON EXAMINATION: None available INDEX LESION SIZE SUV INTERPRETATION Lower pelvis, heterogeneous prostate gland 19.6-mm (frame 60) 2.8 Fulfills quantitative criteria for malignant transformation NON-INDEX LESION SIZE SUV INTERPRETATION Mediastinum, bilateral thoracic perihilum 2.6 (max) Quantitative criteria for viable neoplasm are not fulfilled TECHNIQUE: Following the intravenous administration of 11.83 mCi of F-18 deoxyglucose via the left antecubital fossa, multiplanar image acquisitions of the neck, chest, abdomen and pelvis to level of mid thigh, obtained at one hour post radiopharmaceutical administration contemporaneously interpreted with the current CT of the neck, chest, abdomen and pelvis to level of mid thigh, dated 12/04/21 via coregistration reveal: SERUM GLUCOSE LEVEL: 103 mg/dl. HEIGHT: 70 inches. WEIGHT: 175 lbs. FINDINGS: 1. Heterogeneous increased radiopharmaceutical concentration is defined in the lower pelvis associated with the apparent prostate gland generating a calculated maximal standard uptake value of 2.8. The maximal axial diameter of the corresponding metabolic, morphologic abnormality, heterogeneous in presentation is 19.6-mm. 2. Mild increased glucose metabolism is multifocally apparent in the bilateral thoracic perihilum, mediastinal structures, generating a calculated maximal standard uptake value of 2.6. Quantitative criteria for centrally located thoracic/mediastinal viable neoplasm are not fulfilled. 3. Normal physiologic distribution of the radiopharmaceutical is apparent in the hepatic (3.2) and splenic parenchyma, both renal units, bladder and visualized intestinal tract. The visualized portion of the cerebral cortical-subcortical structures demonstrate symmetric and preserved glucose metabolism. Diffuse radiopharmaceutical concentration is noted in all four quadrants of the abdomen and pelvis. Prominent uptake is observed in the ascending and descending thoracic aorta commensurate with activated leukocytes associated with atherosclerotic plaque formation. Pertinent CT findings are as follows: CHEST: There is evidence of prior median sternotomy. There is atherosclerotic calcification defined in the thoracic aorta without evidence of dilatation-aneurysm formation. Coronary arterial calcification is observed. A hiatal hernia is encountered. There are no parenchymal densities-nodules defined in the right and left hemithorax with discernible increased tracer uptake. ABDOMEN AND PELVIS: There is atherosclerotic calcification defined in the abdominal aorta without evidence of dilatation-aneurysm formation. Abdominal-pelvic arterial calcification is observed. Cholelithiasis is demonstrated. Calcified granuloma formation is visualized in the splenic parenchyma. Colonic diverticulosis is noted without evidence of diverticulitis. Right and left inguinal soft tissue densities with fatty hilus reveal no evidence of increased FDG uptake. A fat containing left inguinal hernia is noted. SKELETAL: Degenerative changes are noted in the cervical, thoracic and lumbar spine without evidence of increased radiopharmaceutical concentration. There is a lumbar scoliosis defined. There is no evidence of sclerotic, mixed sclerotic-lytic and/or lytic changes noted on review of the skeletal structures manifesting an increase in glucose metabolism. PET/PET/CT Tumor Base -Thigh Subs IMPRESSION: 1. Increased FDG distribution defined in the lower pelvis associated with the prostate gland fulfills quantitative criteria for viable neoplasm. 2. Enhanced tracer uptake observed in the mediastinum, bilateral thoracic perihilum does not fulfill quantitative criteria for malignant transformation. (Jorge browning al, Journal of Clinical Oncology 16:2142, 1998). Electronic Signature Uche Arias D.O. Accurate Quantification of SUVs for this report are calculated using the exclusive [employer]. ([place].S. Patent No. 10, [id number] 983). Standardization and correction of the FDG SUV metric via ACCUQUAN technology allow for vendor non-specific objective quantitative examination comparison and optimization of the sensitivity and specificity of the FDG PET-CT examination. Electronically Signed: Uche Arias DO at 8:13 EST ,
== END 2021-12-04 23:59 | disposition home or self-care (01) ==
PROVIDERS: PCP Family Medicine; Referring Provider Urology; Visit Provider Urology
DX: C61 Malignant neoplasm of prostate (principal)
CPT/HCPCS: 78815; A9552

== ENCOUNTER → 2022-04-30 | Outpatient (CLI) | payer MEDICARE, SELFPAY ==
--- NOTE | 2022-04-30 15:15 | PET_ITS ---
EXAMINATION: Ga 68 PSMA (PYLARIFY) PET-CT INDICATIONS: A 77-year-old male with history of carcinoma of the prostate presenting for restaging examination. COMPARISON EXAMINATION: FDG PET-CT study dated 12/04/21 TECHNIQUE: Following the intravenous administration of 9.66 mCi of Ga 68 PSMA, via the left antecubital fossa, imaging were acquired using multiple positions along the same length of the patient?s body as the computed tomography examination. Iterative methods were used to reconstruct PET acquisitions. CT images were used accordingly for attenuation correction and anatomic localization. The examination was interpreted using the EANM (Dain et al., Journal of Nuclear Medicine Molecular Imaging 44:1622, 2017) and PROMISE (Eilon et al., Journal of Nuclear Medicine 59:469, 2018) interpretive criteria. HEIGHT: 69 inches. WEIGHT: 175 lbs. PSMA expression score PROMISE criteria: High (3): SUV ? parotid-salivary gland, intermediate (2): SUV ? liver, < parotid gland; low (1): SUV ? blood pool. SUV reference values: Parotid glands 28. Normal liver parenchyma 4.9. Blood pool 1.8 FINDINGS: Head/Neck: There is normal physiologic distribution of the radiopharmaceutical noted in the parotid and submandibular glands. There is no evidence of abnormal increased radiopharmaceutical concentration on meticulous inspection of the cranial vault. CHEST: No abnormal increase in radiopharmaceutical concentration is identified in the bilateral hemithorax pulmonary parenchyma, mediastinum, right and left thoracic perihilum or bilateral hemithorax at the pleural interface. Pertinent chest CT findings are as follows. A hiatal hernia is defined. There is atherosclerotic calcification defined in the thoracic aorta without evidence of dilatation-aneurysm formation. Coronary arterial calcification is observed. The patient is status-post median sternotomy. Bilateral axillary soft tissue densities reveal no evidence of increased radiopharmaceutical concentration. Abdomen/Pelvis: Normal radiopharmaceutical concentration is defined in the hepatic and splenic parenchyma, visualized intestinal tract, bilateral kidneys and urinary bladder. Pertinent abdomen and pelvis CT findings are as follows. Cholelithiasis is encountered. There is atherosclerotic calcification defined in the abdominal aorta without evidence of dilatation-aneurysm formation. Pelvic arterial calcification is observed. Calcified granuloma formation is noted in the splenic parenchyma. Subcentimeter abdominal retroperitoneal soft tissue densities are non-radiotracer avid. A fat containing left inguinal hernia is noted. Right and left inguinal soft tissue densities are non-PMSA avid. SKELETAL: There is no evidence of abnormal increased radiopharmaceutical concentration within the context of the visualized axial skeletal structures. PET/PET/CT Tumor Base -Thigh Subs IMPRESSION: 1. NEGATIVE EXAMINATION. There is no definitive quantitative scintigraphic evidence of recurrent/viable neoplasm. A. Meticulous inspection of whole body acquisitions demonstrate no scintigraphic abnormalities as defined above. Electronic Signature Uche Arias D.O. Electronically Signed: Uche Arias, at 14:39 EDT ,
== END | disposition home or self-care (01) ==
PROVIDERS: PCP Family Medicine; Referring Provider Urology; Visit Provider Urology
DX: C61 Malignant neoplasm of prostate (principal)
CPT/HCPCS: 78815; A9595

== ENCOUNTER → 2022-05-13 | Outpatient (CLI) | payer MEDICARE, SELFPAY ==
--- NOTE | 2022-05-13 07:07 | MRI_ITS ---
EXAM: MR PELVIS WITHOUT AND WITH INTRAVENOUS CONTRAST CLINICAL INDICATION: h/o prostate cancer, rising PSA, negative PET -- h/o prostatectomy TECHNIQUE: Multiplanar and multisequence MR images of the pelvis without and with intravenous contrast. This report was created using [employer] report generation technology. CONTRAST: IV 15ml Clariscan COMPARISON: Pylarify/PMSA scan 04/30/2022 FINDINGS: APPENDIX: No evidence of acute appendicitis. INTRAPERITONEAL SPACE: Unremarkable. No ascites or other fluid collection. BLADDER: Unremarkable. REPRODUCTIVE: Prostate is absent. No mass. BONES/JOINTS: Unremarkable. No suspicious lytic or blastic abnormality. SOFT TISSUES: Unremarkable. No pelvic wall hernia. LYMPH NODES: Unremarkable. No enlarged lymph nodes. MRI/Pelvis W/WO Contrast IMPRESSION: No pelvic mass or adenopathy. Electronically Signed: Kunal Mcconnell MD ([place]) at 15:25 EDT Reading Location ID and State: [facility] / [place] , Service support ,
[2022-05-13 07:45] LABS: CREATININE FINGERSTICK 0.9 mg/dL (0.70-1.30); EGFR FINGERSTICK > 60.0000 mL/min (>60)
== END | disposition home or self-care (01) ==
PROVIDERS: PCP Family Medicine; Referring Provider Student in an Organized Health Care Education/Training Program; Visit Provider Student in an Organized Health Care Education/Training Program
DX: C61 Malignant neoplasm of prostate (principal); R97.21 Rising PSA following treatment for malignant neoplasm of prostate
CPT/HCPCS: 72197; A9575

== ENCOUNTER → 2022-11-03 | Outpatient (CLI) | payer MEDICARE, SELFPAY | END | disposition home or self-care (01) | LOC: PSN 12:07 | PROVIDERS: PCP Family Medicine; Visit Provider Nurse Practitioner Family | DX: I49.3 Ventricular premature depolarization (principal) | CPT/HCPCS: 93225; 93226 ==

== ENCOUNTER 2022-11-24 11:10 | Observation (INO) | payer MEDICARE, SELFPAY ==
--- NOTE | 2022-11-18 11:19 | RAD_ITS ---
STUDY: X-RAY CHEST REASON FOR EXAM: Male, 77 years old. Preoperative evaluation. TECHNIQUE: Frontal and lateral views of the chest. COMPARISON: None. FINDINGS: Mild hyperinflation. There is no demonstrated pleural abnormality. Cardiomegaly with sternotomy wires. Normal mediastinum and haja. Normal visualized pulmonary arteries. Aortic tortuosity with calcification. Normal visualized thoracic spine. Normal visualized ribs, clavicles, and shoulders. There is no demonstrated abnormality of the visualized soft tissue structures of the upper abdomen. RAD/Chest PA and Lateral IMPRESSION: Cardiomegaly with hyperinflation. No active or acute cardiopulmonary disease. Electronically Signed: Eldon Isaacs, at 14:28 EST ,
[2022-11-18 11:33] LABS: Absolute Lymphocyte Count 0.63 X10^3/uL (0.83-4.51); Absolute Neutrophil Count 4.2 X10^3/uL (2.0-7.7); Basophil# 0.02 X10^3/uL; Basophil% 0.4 % (0-1); Eosinophil# 0.12 X10^3/uL; Eosinophils% 2.2 % (0-5); Hematocrit 39.5 % (40-54); Hemoglobin 13.1 g/dL (13.0-16.5); Lymphocyte # 0.63 X10^3/ul (0.83-4.51); Lymphocyte % 11.7 % (19-41); Mean Corp Hgb Conc 33.2 g/dL (32-36); Mean Corpuscular Hgb 31.3 pg (27.0-32.0); Mean Corpuscular Volume 94.5 fL (80-94); Mean Platelet Vol. 9.9 fl (6.2-12.0); Monocyte# 0.44 X10^3/uL; Monocyte% 8.1 % (0-10); NRBC Flagged by Analyzer 0 % (0-5); Neutrophil # 4.18 X10^3/uL (2.7-7.7); Neutrophil % 77.4 % (47-70); Platelet Count 193 K/mm3 (150-450); RBC Distribution Width CV 12.2 % (11.6-14.6); RBC Distribution Width SD 42.7 fl (35.1-43.9); Red Blood Count 4.18 M/mm3 (4.6-6.2); White Blood Count 5.4 K/mm3 (4.4-11.0)
[2022-11-18 12:24] LABS: Anion Gap 6 (5-15); BUN 24 mg/dL (7-18); BUN/Creat Ratio 17.8 RATIO (10-20); Calcium,Total 9.3 mg/dL (8.5-10.1); Chloride 110 mmol/L (98-107); Creatinine, Serum 1.35 mg/dL (0.70-1.30); EST Glomerular Filtration Rate 55 mL/min (>60); Est Glom Filt Rate - Afr Amer 66 mL/min (>60); Glucose 96 mg/dL (74-106); Potassium 4.7 mmol/L (3.5-5.1); Sodium Level 142 mmol/L (136-145)
[2022-11-21 10:01] VITALS: BMI 26.4
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
--- NOTE | 2022-11-24 10:37 | CL.D_ITS ---
Patient Name: KERRIE AVILES Study Date: 11/24/2022 Performing: Cristian Ramirez MD Ht: 69 inches 175.26 cm : 1945 Wt: 178.99 lbs 81.19 kg Age: 77 Gender: male BSA: 1.97 PROCEDURE(S) PERFORMED DC11-(94890)AO ROOT ANGIO WITH HEART CATH DC03-(22080)LHC/COR/LV/CABG IC12-(61756/C9600)SHIRAZ W/WO PTCA, SINGLE CORONARY ARTERY IC02-(47902)PTCA, EACH ADD'L CORONARY ART, SAME MAJOR CLINICAL PROFILE AND INDICATIONS Indications: Suspected CAD, Cardiac Arrythmia Heart Failure: None CONCLUSIONS Bypass grafts occluded Moderate left anterior descending artery stenosis, high-grade left circumflex artery and OM1 stenosis and mild right coronary artery disease left ventricular systolic dysfunction with akinetic mid inferior segment and mildly hypokinetic anterior wall. RECOMMENDATIONS We will recommend PCI of the circumflex artery and ramus intermedius and consider EP evaluation for the possible cardiac arrhythmia and PVCs DESCRIPTION OF PROCEDURE The patient arrived to the procedure lab. The risks and benefits of the procedure as well as a full description of our services here and current unavailability of surgical backup were fully explained to the patient and/or their significant other prior to the catheterization. The Timeout was completed, verifying the correct patient and procedure. The patient's procedural site was prepped and draped in the usual fashion. Local anesthetic was given subcutaneously to left radial region with Lidocaine 2%. Using a modified Seldinger technique, arterial access was obtained via the left radial artery, a 6Fr sheath was inserted. Left internal mammary artery graft to the LAD selective angiography was performed in multiple views using a 5 Fr. IM catheter. Left Coronary Artery selective angiography was performed in multiple views using a 5 Fr. JL4 catheter. Right Coronary Artery selective angiography was then performed in multiple views using a 5 Fr. 3DRC (Jose Miguel) catheter. Ascending (root) aorta selective angiography was then performed in single view. Ascending (root) aorta selective angiography was then performed in single view.The arterial sheath was pulled and a TR Band was applied for hemostasis. 10cc air inserted. CORONARY ANGIOGRAPHY DOMINANCE: Right Dominant LEFT HEART ASSESSMENT Left Ventricular Ejection Fraction: by LV Gram 40 % Anterior Hypokinesis - Moderate. Inferior Mid Akinesis Depressed Left Ventricular systolic function LEFT MAIN: Non-obstructive LEFT ANTERIOR DESCENDING ARTERY: CIRCUMFLEX ARTERY: The circumflex artery has a mid 80% stenosis noted in a nondominant vessel. RIGHT CORONARY ARTERY: Dominant vessel with no high-grade stenosis noted GRAFTS: BETANCOURT graft to the Mid LAD is totally occluded Radial graft to the CIRC is totally occluded AORTIC ROOT: Angiographically normal COMPLICATIONS No Complications PROCEDURE MEDICATIONS Fentanyl 50 mcg IV Versed 1 mg IV Versed 1 mg IV Oxygen: 2 L/min via nasal cannula Brilinta 180 mg PO @ 11/24/2022 10:31:39 Heparin given IA 11/24/2022 09:53:13 Heparin 4000 unit(s) IV 11/24/2022 10:27:57 Verapamil 2.5mg, Ntg 100mcgs, 3000 units of Heparin given IA 11/24/2022 09:53:13 SUMMARY OF HEMODYNAMIC DATA Time AIR REST ECG 08:25:04 AO 128/60 (85) SA 09:55:24 LV 149/2, 11 10:15:49 LV 145/4, 16 10:15:57 LV 127/3, 6 10:17:42 LVp 135/5, 9 10:17:47 AOp 141/62 (89) 10:17:54 AIR REST 11:23:11 Signed By Cristian Ramirez MD On 11/24/2022 14:48:22 Signed By Cristian Ramirez MD On 11/24/2022 10:37:06 Cristian Ramirez MD
--- NOTE | 2022-11-24 13:36 | CRPHASE1_ITS ---
Patient Communication Former Patient:: Phase I Guide to Cardiac Rehab Given to Patient:: Yes Cardiac Rehab Facility Choice List Given to Patient:: Yes Quill Machine Operator:: [facility] Cardiac Rehabilitation Info Cardiac Rehabilitation Program Information: Cardiac Rehab The cardiac rehab team at [facility] consists of highly skilled exercise physiologists, nurses, respiratory therapists and physicians working together with you. Our purpose is to help you have a full recovery and achieve the goals you set for yourself. Over the years many of our patients have returned to activities they assumed they would never do again! We can help restore your confidence and motivation to make lifestyle changes that can have a significant impact on your health and quality of life! We can help answer questions and concerns you may have about exercise, lifestyle, medications, diet, stress and anxiety which are common following a hospitalization. WE monitor ECG and vital signs during exercise and discuss your progress with you and report to your physician(s). Cardiac Rehab is proven to help reduce readmissions, improve functional capacity and lower recurrence of problems with your heart. Our Cardiac Rehab program is Certified by the [place] [employer]-Vascular and Pulmonary [employer] (AACVPR) and Accredited by the [place] [employer] through our [facility]. You can contact us at . We invite you to call us with your questions or to get started in our program. If you have other questions or concerns be sure to ask your physician/provider during your follow-up visit. WE look forward to seeing you!
--- NOTE | 2022-11-24 13:38 | CRPH1.INSTRU ---
General Education CAD and cardiac anatomy and function:: Patient communicates acknowledgment Explanation of diagnoses and procedures:: Patient communicates acknowledgment Sign/Symptoms of AR:: Patient communicates acknowledgment Antiplatelet therapy: Patient communicates acknowledgment Smoking Patient Nicotine/Smoking Risk Factors Are:: Never smoked Hypertension Patient Hypertension Risk Factors Are:: No documented hx of HTN Hypertension:: Patient communicates acknowledgment Heart Disease Patient Heart Disease Risk Factors Are:: Previous cardiac event Heart Disease Response Code:: Patient communicates acknowledgment Stress Patient Stress Risk Factors Are:: Patient denies stress as a risk factor Stress Response Code:: Patient communicates acknowledgment
[2022-11-24 16:37] VITALS: BMI 25.9
[2022-11-24 16:38] VITALS: BP 143/73; PULSE 69; RESP 16; TEMP 37.2; O2SAT 100
[2022-11-24 18:00] VITALS: PULSE 79
[2022-11-24] MEDS: 0.9% Normal Saline 1,000 ML 60 ML IV (18:28)
[2022-11-24 18:37] VITALS: BP 130/71; PULSE 61; RESP 16; TEMP 37.2; O2SAT 97
[2022-11-24 21:03] VITALS: BP 127/74; PULSE 76; RESP 16; TEMP 37.4; O2SAT 96
[2022-11-24 21:07] VITALS: BP 127/74; PULSE 76
[2022-11-24] MEDS: TICAGRELOR 90 MG TABLET PO (21:07)
[2022-11-24] MEDS: Metoprolol Tartrate 25 MG Tablet PO (21:07)
[2022-11-25 03:15] VITALS: BP 139/85; PULSE 64; RESP 16; TEMP 37.3; O2SAT 96
[2022-11-25 04:39] VITALS: BMI 26.3
[2022-11-25] MEDS: Levothyroxine 50 MCG Tablet PO (05:31)
[2022-11-25 06:01] LABS: Hematocrit 37.4 % (40-54); Hemoglobin 12.7 g/dL (13.0-16.5); Mean Corpuscular Hgb 31.1 pg (27.0-32.0); Mean Corpuscular Volume 91.7 fL (80-94); Mean Platelet Vol. 10.1 fl (6.2-12.0); Platelet Count 165 K/mm3 (150-450); RBC Distribution Width CV 12.4 % (11.6-14.6); RBC Distribution Width SD 41.5 fl (35.1-43.9); Red Blood Count 4.08 M/mm3 (4.6-6.2); White Blood Count 5.2 K/mm3 (4.4-11.0)
[2022-11-25 06:38] LABS: AST(SGOT) 30 U/L (15-37); Alanine Aminotransfer ALT/SGPT 36 U/L (16-61); Albumin, Serum 3.1 g/dL (3.2-5.0); Alkaline Phosphatase 52 U/L (45-117); Anion Gap 7 (5-15); BUN 18 mg/dL (7-18); BUN/Creat Ratio 15.7 RATIO (10-20); Calcium,Total 9.2 mg/dL (8.5-10.1); Chloride 111 mmol/L (98-107); Creatinine, Serum 1.15 mg/dL (0.70-1.30); EST Glomerular Filtration Rate 66 mL/min (>60); Est Glom Filt Rate - Afr Amer 79 mL/min (>60); Estimated Creatinine Clearance 54.65 ml/min; Globulin 3.2 g/dL (2.2-4.2); Glucose 102 mg/dL (74-106); Potassium 4.2 mmol/L (3.5-5.1); Protein, Total 6.3 g/dL (6.4-8.2); Sodium Level 142 mmol/L (136-145)
[2022-11-25 07:20] VITALS: O2SAT 93
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
--- NOTE | 2022-11-25 07:32 | PCM.DC ---
Discharge Instructions Diet Discharge Diet: No restrictions Activity Discharge Activity: Return to Normal Activity Additional Activity Instructions:: You must have someone drive you home. Do not drive until instructed by your doctor. You must have someone stay with you all night after your test. Rest in bed or on the couch until the next morning. Limit the number of times you go up and down stairs the day of your test. Apply pressure to the puncture site if you sneeze or cough. Dressing / Incision Call your doctor if your incision/area has: Increased Pain/ Swelling, Increased Redness, Foul Smelling Discharge and Swelling at the incision site Call your doctor if you observe: Fever of 101 or Higher Additional Dressing/Incision Instructions:: Keep the dressing (bandage) on until the next morning. You may then shower, but do not take a tub bath for 5 days after your test. It is normal to have some tenderness and discomfort at the puncture site. Sometimes bruising also occurs. However, if pain, numbness, or coldness occurs below the puncture site (in your leg, toes, arms or fingers) call your doctor at once. You may have a small, marble sized knot at the puncture site. This is normal. Do not rub it. It will go away in 4-6 weeks. Bleeding can occur from the area where the puncture was done. Blood may spurt or drip from the site. If blood spurts, apply pressure right away to stop bleeding and call 911. Although rare, bleeding into the tissue (hematoma) can also occur. If this happens, a large, firm area goose egg under the skin will appear. If any of these occur, lie down as flat as you can and have someone apply firm pressure to the cath site with a gauze pad or a clean washcloth for 10-15 minutes. Call 911 or go to the Emergency Department. Follow Up Care When: You have a follow-up call from electrophysiology at [facility]. They have your number. Test Results: Test results from this visit will be discussed in further detail at your follow-up appointment, if applicable. Discharge Plan Admission Admit Date/Time: 11/24/22 11:10 Attending Provider: Cristian Ramirez Primary Care Provider: Harris Sanchez Discharge Orders/Prescriptions Prescriptions: New Brilinta 90 mg Tablet 90 mg PO BID Qty: 180 2RF Continued meloxicam 15 mg tablet 15 mg PO .3 xWEEK Label Comments: take 1 tablet by mouth once daily multivitamin 1 EACH tablet 1 ea PO DAILY levothyroxine 50 MCG tablet 50 mcg PO DAILY rosuvastatin 10 mg tablet 10 mg PO DAILY aspirin [Adult Aspirin Regimen] 81 mg tablet,delayed release (DR/EC) 81 mg PO .COMPLEX Label Comments: 81 mg PO q day: resume when Dr. Corley deems it appropriate Rx Instructions: 81 mg PO q day: resume when Dr. Corley deems it appropriate lisinopril 2.5 mg tablet 2.5 mg PO QDAY Qty: 90 3RF metoprolol tartrate 25 mg tablet 25 mg PO BID Qty: 60 11RF Referrals / Follow Up: Cristian Ramirez MD [Med Staff - Active Staff] - Harris Sanchez MD [Primary Care Provider] - Disposition Disposition (needs filled in before D/C Order can be placed): Home, Self Care
[2022-11-25 08:00] VITALS: BP 128/68; PULSE 68; RESP 16; TEMP 36.7; O2SAT 96
[2022-11-25 08:48] VITALS: BP 128/68; PULSE 68
--- NOTE | 2022-11-25 09:00 | CASEMGMT ---
Patient is discharging on Brilinta, savings card provided to patient. Patient had no further questions or concerns at this time.
[2022-11-25] MEDS: TICAGRELOR 90 MG TABLET PO (09:34)
--- NOTE | 2022-11-25 10:00 | EKG12_ITS ---
Test Reason : AM EKG Blood Pressure : / mmHG Vent. Rate : 073 BPM Atrial Rate : 073 BPM P-R Int : 180 ms QRS Dur : 104 ms QT Int : 458 ms P-R-T Axes : 075 021 028 degrees QTc Int : 504 ms Sinus rhythm with frequent Premature ventricular complexes in a pattern of bigeminy Low voltage QRS Cannot rule out Anterior infarct , age undetermined Prolonged QT Abnormal ECG Confirmed by PATRICIA ROSARIO, ALEX ([id number]), desk editor GAB DOTSON ([id number]) on 11/26/2022 1:20:03 PM Referred By: Cristian Ramirez Confirmed By:ALEX GOMEZ MD
--- NOTE | 2022-11-25 10:04 | CL.I_ITS ---
Patient Name: KERRIE AVILES Study Date: 11/24/2022 Performing: Radha Fernandez MD Ht: 69 inches 175.26 cm : 1945 Wt: 179.2 lbs 81.19 kg Age: 77 Gender: male BSA: 1.97 PROCEDURE(S) PERFORMED DC11-(87131)AO ROOT ANGIO WITH HEART CATH IC12-(42407/[id number])SHIRAZ W/WO PTCA, SINGLE CORONARY ARTERY IC02-(70887)PTCA, EACH ADD'L CORONARY ART, SAME MAJOR CLINICAL PROFILE AND CO-MORBIDITIES Indications: Suspected CAD, Cardiac Arrythmia Heart Failure: None CONCLUSIONS Successful SHIRAZ to OM1 and PTCA to mLCx RECOMMENDATIONS DESCRIPTION OF PROCEDURE The patient arrived to the procedure lab. The risks and benefits of the procedure as well as a full description of our services here and current unavailability of surgical backup were fully explained to the patient and/or their significant other prior to the catheterization. The Timeout was completed, verifying the correct patient and procedure. The patient's procedural site was prepped and draped in the usual fashion. Local anesthetic was given subcutaneously to left radial region with Lidocaine 2% Using a modified Seldinger technique,arterial access was obtained via the left radial artery, a 6Fr sheath was inserted. Left internal mammary artery graft to the LAD selective angiography was performed in multiple views using a 5 Fr. IM catheter. Left Coronary Artery selective angiography was performed in multiple views using a 5 Fr. JL4 catheter. Right Coronary Artery selective angiography was then performed in multiple views using a 5 Fr. 3DRC (Jose Miguel) catheter. Ascending (root) aorta selective angiography was then performed in single view. Ascending (root) aorta selective angiography was then performed in single view.The images were reviewed and options discussed. A decision was then made to proceed with an Intervention, IVUS or other adjunct procedure. XB 3.5 Guide catheter was inserted and engaged into the LCA. 2.25 x 12 Euphora Balloon catheter was inserted. Balloon catheter was advanced across lesion in the first obtuse marginal, mid. PTCA balloon inflated at 8 atms for 25 secs. PTCA balloon inflated at 10 atms for 18 secs. 2.75 x 15 Isabella Drug Eluting stent was inserted. Drug Eluting stent was advanced across the lesion in the first obtuse marginal, mid. Angiogram performed pre stent deployment. Angiogram performed post stent deployment. Guide wire was repositioned to the Circumflex 2 x 20 Euphora Balloon catheter was advanced across lesion in the circumflex, mid. PTCA balloon inflated at 8 atms for 18 secs. Angiogram performed post balloon dilatation. The arterial sheath was pulled and a TR Band was applied for hemostasis. 10cc air inserted. INTERVENTION INFORMATION LESION SITE: 1st OM (Mid) Lesion Complexity: High/C, chronic total occlusion: No, lesion at bifurcation: No, thrombus present: No, lesion length: 12 mm, culprit lesion: Yes, Previously treated lesion: No Pre Stenosis: 80 % Pre intervention DENITA flow: 3 PROCEDURE: Drug Eluting Stent with pre dilatation. Post Stenosis: 0 % Post intervention DENITA flow: 3 Lesion Devices: Cordis 6 Fr XB3.5 100cm Guide Catheter Holder .014 190cm [employer] [place] Straight Medtronic SC EUPHORA RX 2.25x12 BALLOON Medtronic Resolute Isabella RX SHIRAZ 2.75x15 LESION SITE: Circumflex (Mid) Lesion Complexity: High/C, chronic total occlusion: No, lesion at bifurcation: Yes, thrombus present: No, lesion length: 15 mm, culprit lesion: Yes, Previously treated lesion: No Pre Stenosis: 80 % Pre intervention DENITA flow: 3 PROCEDURE: Balloon Angioplasty Competitive flow was noted to OM2 suggestive of a patent bypass graft to this vessel. However there was no competitive flow noted to the distal LCx or OM3. By fixing the stenosis in the mLCx we felt that the flow to these vessels would also be improved. Since we had a very good PTCA result and the vessel was small in diameter, we felt PTCA alone is a good option in this location. We did not pursue further attempts at locating the bypass graft as we felt that it would not foreign exchange services manager. Even if the graft had a lesion in it, we fixed the mLCx to improve [place] flow to the vessel it supplies. Post Stenosis: 10 % Post intervention DENITA flow: 3 Lesion Devices: Cordis 6 Fr XB3.5 100cm Guide Catheter Holder .014 190cm [employer] [place] Straight Medtronic SC EUPHORA RX 2.0x20 BALLOON COMPLICATIONS No Complications PROCEDURE MEDICATIONS Fentanyl 50 mcg IV Versed 1 mg IV Versed 1 mg IV Fentanyl 25 mcg IV Oxygen: 2 L/min via nasal cannula Brilinta 180 mg PO @ 11/24/2022 10:31:39 Heparin given IA 11/24/2022 09:53:13 Heparin 4000 unit(s) IV 11/24/2022 10:27:57 Verapamil 2.5mg, Ntg 100mcgs, 3000 units of Heparin given IA 11/24/2022 09:53:13 SUMMARY OF HEMODYNAMIC DATA Time AIR REST ECG 08:25:04 AO 128/60 (85) SA 09:55:24 LV 149/2, 11 10:15:49 LV 145/4, 16 10:15:57 LV 127/3, 6 10:17:42 LVp 135/5, 9 10:17:47 AOp 141/62 (89) 10:17:54 AIR REST 15:57:53 Signed By Radha Fernandez MD On 11/25/2022 10:03:56 Radha Fernandez MD
== END 2022-11-25 07:32 | disposition home or self-care (01) ==
LOC: PCU 16:30
PROVIDERS: Nurse Practitioner Family; Specialist; Admitting Provider Internal Medicine Cardiovascular Disease; PCP Family Medicine; Referring Provider Internal Medicine Cardiovascular Disease; Visit Provider Internal Medicine Cardiovascular Disease
DX: I25.810 Atherosclerosis of coronary artery bypass graft(s) without angina pectoris (principal); I48.0 Paroxysmal atrial fibrillation; R55 Syncope and collapse; R00.0 Tachycardia, unspecified; I25.5 Ischemic cardiomyopathy; R94.31 Abnormal electrocardiogram [ECG] [EKG]; I25.10 Atherosclerotic heart disease of native coronary artery without angina pectoris; I49.3 Ventricular premature depolarization; Z86.79 Personal history of other diseases of the circulatory system; R00.1 Bradycardia, unspecified; Z79.899 Other long term (current) drug therapy; R94.39 Abnormal result of other cardiovascular function study; I34.0 Nonrheumatic mitral (valve) insufficiency; I25.82 Chronic total occlusion of coronary artery; R93.1 Abnormal findings on diagnostic imaging of heart and coronary circulation
CPT/HCPCS: 36415; 71046; 80048; 80053; 85025; 85027; 92921; 92928; 93005; 93459; 93567; 99152; 99153; 99221; C1894; J7030; J7040; Q9967; C1725; C1769; C1874; C1887; C9600; G0378; J1327

== ENCOUNTER → 2023-02-02 | Outpatient (CLI) | payer MEDICARE, SELFPAY ==
--- NOTE | 2023-02-02 11:05 | ECHOD_ITS ---
Reason For Study: PVC BURDEN Procedure This was a 2D Doppler, Color Flow transthoracic echocardiogram. Exam performed in department. Left Ventricle Normal LV size. The estimated ejection fraction is 52 %. Mild segmental systolic dysfunction (see wall motion). Infero-Basal: Severely Hypokinetic. Basal inferoseptal: Severely Hypokinetic. Atria The left atrium is moderately enlarged. Normal right atrium. Mitral Valve Status post mitral valve repair with annuloplasty ring. Tricuspid Valve Normal tricuspid valve. Mild (1+) tricuspid valve insufficiency. Pulmonary artery systolic pressure is 30 mmHg. Aortic Valve Moderate diffuse aortic valve thickening. Peak aortic valve gradient 19 mmHg. Mean aortic valve gradient 10 mmHg. Pulmonic Valve Normal pulmonic valve. Great Vessels Normal aortic root. The pulmonary artery is normal size. Normal inferior vena cava. Pericardium/Pleural No pericardial effusion. MMode/2D Measurements & Calculations LVIDd: 5.2 cm IVSd: 0.91 cm LVOT diam: 2.1 cm LVIDs: 4.1 cm LVPWd: 1.1 cm LVOT area: 3.6 cm2 RVDd: 4.5 cm FS: 21.4 % Ao root diam: 3.5 cm LAV(MOD-bp): 143.5 ml LVAd ap4: 31.6 cm2 LAV(MOD-bp) Indexed: 73.5 ml/m2 LVLd ap4: 7.7 cm LAV(MOD-sp2): 167.4 ml EDV(MOD-sp4): 107.6 ml LAV(MOD-sp4): 110.8 ml EDV(sp4-el): 110.5 ml LVAs ap4: 21.9 cm2 LVLs ap4: 6.7 cm ESV(MOD-sp4): 61.2 ml ESV(sp4-el): 61.1 ml EF(MOD-sp4): 43.1 % EF(sp4-el): 44.7 % SV(MOD-sp4): 46.3 ml SV(sp4-el): 49.4 ml LA A4 area: 29.8 cm2 LA dimension(2D): 6.5 cm RA A4 area: 22.0 cm2 Time Measurements MV dec time: 0.23 sec Doppler Measurements & Calculations MV E max steve: 101.2 cm/sec Lat Peak E' Steve: 13.4 cm/sec Med Peak E' Steve: 7.2 cm/sec MV A max steve: 73.6 cm/sec E/E' lat: 7.6 E/E' med: 14.1 MV E/A: 1.4 MV V2 max: 104.9 cm/sec Ao V2 max: 216.3 cm/sec MV max P.5 mmHg MV dec slope: 448.5 cm/sec2 Ao max P.9 mmHg MV V2 mean: 57.7 cm/sec Ao V2 mean: 148.4 cm/sec MV mean P.7 mmHg Ao mean P.3 mmHg MV V2 VTI: 44.5 cm Ao V2 VTI: 51.3 cm AV (velocity ratio): 0.49 MVA(VTI): 2.1 cm2 LIN(I,D): 1.8 cm2 LIN(V,D): 2.1 cm2 LV V1 max: 124.3 cm/sec MR max steve: 503.5 cm/sec SV(LVOT): 91.3 ml LV V1 max P.6 mmHg MR max P.4 mmHg LV V1 mean P.4 mmHg LV V1 mean: 82.8 cm/sec LV V1 VTI: 25.3 cm PA V2 max: 127.4 cm/sec PI dec slope: 171.9 cm/sec2 TR max steve: 259.4 cm/sec PA V2 mean: 74.6 cm/sec TR max P.9 mmHg ECHO/Echo Complete Interpretation Summary Status post mitral valve repair with annuloplasty ring. Normal LV size. The estimated ejection fraction is 52 %. Mild segmental systolic dysfunction (see wall motion). The left atrium is moderately enlarged. Moderate diffuse aortic valve thickening. Ordering Physician: Rich Chatman Referring Physician: Rich Chatman Performed By: Tiera Lorenzo RCS
== END | disposition home or self-care (01) ==
PROVIDERS: PCP Family Medicine; Referring Provider Nurse Practitioner Family; Visit Provider Nurse Practitioner Family
DX: I49.3 Ventricular premature depolarization (principal); R55 Syncope and collapse; Z95.5 Presence of coronary angioplasty implant and graft
CPT/HCPCS: 93306

== ENCOUNTER 2023-07-17 18:26 | Inpatient (IN) | payer MEDICARE, SELFPAY ==
[2023-07-17] VITALS (8 sets, daily range): BP systolic 94–131; BP diastolic 69–99; PULSE 73–152; RESP 16–20; TEMP 36.1–37.3; O2SAT 94–99; BMI 25.4; BMI 24.8
--- NOTE | 2023-07-17 18:58 | EKG12_ITS ---
Test Reason : SOB Blood Pressure : / mmHG Vent. Rate : 107 BPM Atrial Rate : 000 BPM P-R Int : 000 ms QRS Dur : 112 ms QT Int : 318 ms P-R-T Axes : 000 -10 -31 degrees QTc Int : 424 ms Atrial fibrillation with rapid ventricular response Inferior infarct , age undetermined Abnormal ECG Confirmed by PERLA ROSARIO, INEZ ([id number]), film or videotape editor SULLY VELEZ ([id number]) on 07/20/2023 2:27:46 PM Referred By: GETACHEW Confirmed By:NIKIA DUNCAN MD
[2023-07-17 19:19] LABS: Absolute Lymphocyte Count 0.22 X10^3/uL (0.83-4.51); Basophil# 0.01 X10^3/uL; Basophil% 0.3 % (0-1); Eosinophil# 0.08 X10^3/uL; Eosinophils% 2.3 % (0-5); Hemoglobin 13.5 g/dL (13.0-16.5); Lymphocyte # 0.22 X10^3/ul (0.83-4.51); Lymphocyte % 6.3 % (19-41); Mean Corp Hgb Conc 32.9 g/dL (32-36); Mean Corpuscular Hgb 31.4 pg (27.0-32.0); Mean Corpuscular Volume 95.3 fL (80-94); Monocyte# 0.18 X10^3/uL; Monocyte% 5.2 % (0-10); NRBC Flagged by Analyzer 0 % (0-5); Neutrophil # 2.98 X10^3/uL (2.7-7.7); Neutrophil % 85.6 % (47-70); POSITIVE DIFFERENTIAL YES; Platelet Count 133 K/mm3 (150-450); RBC Distribution Width CV 12.9 % (11.6-14.6); RBC Distribution Width SD 45.4 fl (35.1-43.9); White Blood Count 3.5 K/mm3 (4.4-11.0)
[2023-07-17 19:22] LABS: Differential Indicated SCAN CRITERIA MET
--- NOTE | 2023-07-17 19:35 | EDS_ITS ---
HPI History of Present Illness Chief Complaint: Shortness of Breath Informant: patient and spouse/S.O. Narrative Narrative: Getting more short of breath over the last few weeks. He has not been really coughing. He has never had chest pain. He does wake up in the middle the night but it seems more due to having to go the bathroom which is not new and less due to the breathing. But he gets winded with any activity. says over the past week he really just does not do anything because of this. He was seen at [facility] yesterday. He was diagnosed with CHF. He also had a very high heart rate but he has known A-fib. Evidently they got the heart rate down discharge him he followed up with his primary today. Primary rechecked a BNP and it was up higher. And the patient was very winded and thought he would likely need admission to evaluate this. Patient is on and taking his Eliquis twice a day as he supposed to. I reviewed old outpatient records and he has an echo from January of this year where he had an ejection fraction of 52%. But evidently he was diagnosed with atrial fibrillation after this echo so he may have a reduction based on that. [facility] Medical History Atherosclerotic heart disease of [place] coronary artery without angina pectoris Ischemic cardiomyopathy Nonrheumatic mitral (valve) insufficiency Nonrheumatic tricuspid (valve) insufficiency Nonsustained ventricular tachycardia BECKA (obstructive sleep apnea) Paroxysmal atrial fibrillation Prostate cancer PVCs (premature ventricular contractions) Transrectal biopsy US (~10/12/17) Ventricular tachyarrhythmia Home Medications levothyroxine 50 mcg tablet 50 mcg PO DAILY THYROID 01/14/18 [History Last Taken 11/24/22] multivitamin 1 ea PO DAILY SUPPLEMENT 01/14/18 [History Last Taken 11/24/22] rosuvastatin 10 mg tablet 10 mg PO DAILY CHOLESTEROL 01/15/18 [History Last Taken 11/24/22] lisinopril 2.5 mg tablet 2.5 mg PO QDAY blood pressure #90 tabs 10/08/18 [Rx Last Taken 11/24/22] ticagrelor 90 mg tablet (Brilinta) 90 mg PO BID #180 tabs 11/25/22 [Rx Last Taken Unknown] apixaban 5 mg tablet (Eliquis) 5 mg PO BID 06/08/23 [History Last Taken Unknown] metoprolol tartrate 50 mg tablet 100 mg (2 x 50 mg) PO BID This is a dose increase #180 tabs 06/25/23 [Rx Last Taken Unknown] diltiazem HCl 120 mg capsule,extended release 24 hr (Cartia XT) 120 mg PO Q24H 07/17/23 [History Last Taken Unknown] furosemide 40 mg tablet (Lasix) 40 mg PO DAILY edema, SOB 07/17/23 [History Last Taken Unknown] potassium chloride 20 mEq tablet,extended release 20 meq PO DAILY 07/17/23 [History Last Taken Unknown] Allergy/AdvReac Type Severity Reaction Status Date / Time Penicillins [PCN] Allergy Other Verified 07/17/23 18:27 Family History Mother Breast cancer Unknown Heart disease runs in the family Surgical History H/O coronary artery bypass surgery (12/13/15) History of coronary artery stent placement (11/25/22) History of hernia repair (~1986) History of mitral valve repair (12/13/15) History of prostate biopsy (~10/12/17) History of prostate surgery History of right and left heart catheterization (~11/14/15) History of transurethral resection of prostate (12/2017) Implantable loop recorder present (~01/14/23) Social History Smoking Status: Never smoker alcohol intake: never substance use type: does not use caffeine: Yes Type: coffee Number of servings: 2 what type of physical activity do you participate in: walking frequency: daily duration: 30-45 minutes/day seatbelt use: always do you feel safe at home: Yes ROS ROS ED ROS Narrative A complete review of systems was performed and is negative except as documented in the history of present illness. Some specific details below. Constitutional: No recent fevers or chills. Plays. EYE: No discharge, visual complaints, or pain. ENT: No difficulty swallowing. No swelling. No pain. No reflux symptoms. CV: Not been having chest pain. He does have chronic A-fib over the last few months. Respiratory: See history of present illness. GI: No abdominal pain. No nausea vomiting diarrhea. No blood in stool. : No frequency dysuria or hematuria. Musculoskeletal: No recent trauma. No pains. No swelling has ocurred. Skin: No rash. Nondiaphoretic. Neuro: No weakness or numbness. Endocrine: No polyuria or polydipsia. EXAM Physical Exam Narrative Exam Narrative: CONSTITUTIONAL: Patient is nontoxic in appearance. The patient looks comfortable. Work of breathing looks based. HEENT: No notable trauma. Mucous membranes moist. No sinus tenderness. No indication of pain with swallowing. EYES: No conjunctival injection. No proptosis. Pallor. NECK:No JVD. No stridor. CARDIOVASCULAR: Regular rate. Irregularly irregular rhythm. No notable murmur. No JVD. RESPIRATORY: No respiratory distress. Breathing is unlabored. No wheezes. No rhonchi. No rales. No pain with a deep breath. No chest wall tenderness. GASTROINTESTINAL: Not distended. Bowel sounds are normal. No tenderness. No guarding. No rebound. No palpable mass. No bruit is heard. GENITOURINARY: No tenderness over the bladder. No CVA tenderness. MUSCULOSKELETAL: Atraumatic. No peripheral edema. No cord. No tenderness along the deep venous system. No asymmetry. No distended veins. NEUROLOGICAL: Patient is alert and appropriate. No focal deficit noted. SKIN: No noted rashes. No diaphoresis. PSYCHIATRIC: Patient is calm. Mood is appropriate. Const Vital Signs: 07/17/23 18:27 07/17/23 18:38 07/17/23 18:51 Temperature 96.9 F L Temperature Source Temporal Pulse Rate 152 H 116 H Respiratory Rate 20 H 18 Respiratory Effort Normal Blood Pressure 107/91 H 109/87 H Blood Pressure Mean 96 94 Pulse Ox 98 98 Oxygen Delivery Method Room Air Room Air 07/17/23 19:32 07/17/23 19:47 07/17/23 22:01 Temperature Temperature Source Pulse Rate 87 99 Respiratory Rate 18 16 Respiratory Effort Blood Pressure 94/69 100/73 Blood Pressure Mean 77 82 Pulse Ox 96 94 94 Oxygen Delivery Method Room Air Room Air Room Air MDM MDM MDM Narrative Medical decision making narrative: My independent process engineering intern and patient consent to x-rays showed no process. We do see signs of his prior surgery and the loop recorder. Final reading was similar. White count and remainder of CBC is overall normal. Minimally low platelets. Electrolytes show no elevation of BUN and creatinine. He does have a rise of creatinine at 1.79. His baseline is probably about 1-1.3. Patient's troponin is negative. Patient's BNP is elevated at 204.6. I have reviewed prior outpatient records as well as prior echo. Evidently this patient has had extensive cardiac history. He has had bypass surgery, mitral valve repair, stents. It looks like he had some nonsustained V. tach has a loop recorder in. At one point he evidently had an ejection fraction about 20%. In January he had an echo that was at 52% though. But per the patient and his this was before he was diagnosed with atrial fibrillation. I am wondering if his ejection fraction is significantly lower now based on his symptoms. I am also concerned blood sugar here although not low is lower. He is only running about 95 systolic. Although he tolerates that well. This is likely due to starting diltiazem just a couple days ago. Although this is helped his heart rate I am not sure if his blood pressure is fully tolerating this. But if he has a very poor ejection fraction this may still be of benefit. But this is a complex patient with a significant history that he was having accelerating dyspnea on exertion and I think needs further work-up despite having no marked abnormalities on his acute work-up. We walked him and he did not desaturate but he got quite dyspneic. Lab Data Attestation: I reviewed the patient's lab results. Labs: Laboratory Results - last 24 hr 07/17/23 19:11 WBC 3.5 L RBC 4.30 L Hgb 13.5 Hct 41.0 MCV 95.3 H MCH 31.4 MCHC 32.9 RDW Std Deviation 45.4 H RDW Coeff of Reymundo 12.9 Plt Count 133 L MPV 10.0 Immature Gran % (Auto) 0.300 Neut % (Auto) 85.6 H Lymph % (Auto) 6.3 L [place] % (Auto) 5.2 Eos % (Auto) 2.3 Baso % (Auto) 0.3 Absolute Neuts (auto) 3.0 Absolute Lymphs (auto) 0.22 L Nucleated RBC % 0 Differential Comment SCANNED Diff Path Review May foll Sodium 135 L Potassium 4.3 Chloride 104 Carbon Dioxide 23.0 Anion Gap 8 BUN 33 H Creatinine 1.79 H Estim Creat Clear Calc 34.56 Est GFR (MDRD) Af Amer 48 L Est GFR (MDRD) Non-Af 39 L BUN/Creatinine Ratio 18.4 Glucose 119 H Calcium 9.2 Troponin I High Sens 11 B-Natriuretic Peptide 204.6 H Radiography Diagnostic Testing: Clinical Impression(s) from Imaging Studies Chest X-Ray 07/17/23 19:40 IMPRESSION: No active disease. Electronically Signed: Uche Parmar MD at 20:17 EDT , Management Discussion w/another healthcare provider: Hospitalist Discharge Plan Dx/Rx/DC Orders Clinical Impression: Dyspnea on exertion, Congestive heart failure (CHF), Atrial fibrillation, Elevated serum creatinine, History of coronary artery disease Disposition Disposition: Acute Care Hospital [facility]
[2023-07-17 19:39] LABS: Anion Gap 8 (5-15); BUN 33 mg/dL (7-18); BUN/Creat Ratio 18.4 RATIO (10-20); Calcium,Total 9.2 mg/dL (8.5-10.1); Chloride 104 mmol/L (98-107); Creatinine, Serum 1.79 mg/dL (0.70-1.30); EST Glomerular Filtration Rate 39 mL/min (>60); Est Glom Filt Rate - Afr Amer 48 mL/min (>60); Estimated Creatinine Clearance 34.56 ml/min; Glucose 119 mg/dL (74-106); Potassium 4.3 mmol/L (3.5-5.1); Sodium Level 135 mmol/L (136-145); Troponin-I HS 11 pg/mL (3.0-78.0)
--- NOTE | 2023-07-17 19:40 | RAD_ITS ---
STUDY: X-RAY CHEST REASON FOR EXAM: Male, 78 years old. sob TECHNIQUE: Single AP portable view of the chest. COMPARISON: 11/18/2022 FINDINGS: Interval placement of percutaneous panel monitor. Status post median sternotomy. The lungs are clear and expanded. There is no demonstrated pleural abnormality. Normal size heart. Normal mediastinum and haja. Normal visualized pulmonary arteries. Normal visualized aortic arch and descending thoracic aorta. Normal visualized thoracic spine. Normal visualized ribs, clavicles, and shoulders. There is no demonstrated abnormality of the visualized soft tissue structures of the upper abdomen. RAD/Chest 1 View (Portable) IMPRESSION: No active disease. Electronically Signed: Uche Parmar MD at 20:17 EDT ,
[2023-07-17 19:49] LABS: BNP,B-Type NATRIURETIC PEPTIDE 204.6 pg/mL (0-100)
[2023-07-17 19:54] LABS: Differential Comment SCANNED
[2023-07-17 22:09] LABS: Magnesium 2.3 mg/dL (1.6-2.6)
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
[2023-07-18] VITALS (11 sets, daily range): BP systolic 89–128; BP diastolic 57–101; PULSE 75–151; RESP 16; TEMP 37.1–37.2; O2SAT 93–99; BMI 25.0
[2023-07-18] MEDS: Metoprolol Tartrate 100 MG Tablet PO ×2 (00:08→20:04)
[2023-07-18] MEDS: 0.9% Normal Saline (1000mL) 1,000 ML 100 ML IV (00:08)
[2023-07-18 00:12] LABS: Troponin-I HS 13 pg/mL (3.0-78.0)
[2023-07-18] MEDS: Levothyroxine 50 MCG Tablet PO (05:03)
[2023-07-18 05:23] LABS: Absolute Lymphocyte Count 0.24 X10^3/uL (0.83-4.51); Absolute Neutrophil Count 2.6 X10^3/uL (2.0-7.7); Basophil# 0.01 X10^3/uL; Basophil% 0.3 % (0-1); Eosinophil# 0.13 X10^3/uL; Hematocrit 35.1 % (40-54); Hemoglobin 11.8 g/dL (13.0-16.5); Lymphocyte # 0.24 X10^3/ul (0.83-4.51); Lymphocyte % 7.3 % (19-41); Mean Corp Hgb Conc 33.6 g/dL (32-36); Mean Corpuscular Hgb 31.4 pg (27.0-32.0); Mean Corpuscular Volume 93.4 fL (80-94); Mean Platelet Vol. 9.8 fl (6.2-12.0); Monocyte# 0.24 X10^3/uL; Monocyte% 7.3 % (0-10); NRBC Flagged by Analyzer 0 % (0-5); Neutrophil # 2.64 X10^3/uL (2.7-7.7); Neutrophil % 80.8 % (47-70); POSITIVE DIFFERENTIAL YES; Platelet Count 116 K/mm3 (150-450); RBC Distribution Width CV 12.8 % (11.6-14.6); RBC Distribution Width SD 44.2 fl (35.1-43.9); Red Blood Count 3.76 M/mm3 (4.6-6.2); White Blood Count 3.3 K/mm3 (4.4-11.0)
[2023-07-18 05:40] LABS: Differential Indicated SCAN CRITERIA MET
[2023-07-18 05:42] LABS: Troponin-I HS 13 pg/mL (3.0-78.0)
--- NOTE | 2023-07-18 05:55 | ECHOLC_ITS ---
Reason For Study: Arrhythmia Procedure This was a limited 2D transthoracic echocardiogram. Contrast injection was performed. Exam performed portable in patient room. Left Ventricle Normal LV size. The estimated ejection fraction is 50 %. Unable to assess diastolic dysfunction. septal and inferobasal hypokinesis. Right Ventricle Normal RV size. Normal systolic function. Atria The left atrium is moderately enlarged. The right atrium is mildly enlarged. No doppler evidence for ASD. Mitral Valve There is no mitral valve stenosis. Mild (1+) mitral valve insufficiency. An annuloplasty ring is noted in the mitral position. Tricuspid Valve There is no tricuspid stenosis. Mild tricuspid valve insufficiency. Pulmonary artery systolic pressure is 30 mmHg. Aortic Valve Moderate diffuse aortic valve thickening. Mild aortic stenosis. No aortic valve insufficiency. Pulmonic Valve There is no pulmonic valvular stenosis. No pulmonic valve insufficiency. Great Vessels Normal aortic root. Pericardium/Pleural No pericardial effusion. Medication Diluted definity 2ml given slow IV push to enhance endocardial definition. MMode/2D Measurements & Calculations LVIDd: 4.5 cm IVSd: 1.3 cm LVIDs: 3.6 cm LVPWd: 1.3 cm LVAd ap4: 36.7 cm2 FS: 20.0 % LVLd ap4: 8.9 cm EDV(MOD-sp4): 128.4 ml EDV(sp4-el): 128.6 ml LVAs ap4: 26.6 cm2 LVLs ap4: 7.8 cm ESV(MOD-sp4): 74.8 ml ESV(sp4-el): 76.6 ml EF(MOD-sp4): 41.7 % EF(sp4-el): 40.5 % SV(MOD-sp4): 53.5 ml SV(sp4-el): 52.0 ml Doppler Measurements & Calculations Ao V2 max: 212.7 cm/sec TR max madeline: 244.7 cm/sec Ao max P.1 mmHg TR max P.9 mmHg Ao V2 mean: 165.4 cm/sec Ao mean P.6 mmHg Ao V2 VTI: 39.1 cm ECHO/Echo Limited w/Contrast Interpretation Summary The estimated ejection fraction is 50 %. septal and inferobasal hypokinesis The left atrium is moderately enlarged. The right atrium is mildly enlarged. Unable to assess diastolic dysfunction. Mild (1+) mitral valve insufficiency. Mild aortic stenosis. Ordering Physician: Manuel Alvarez Referring Physician: Harris Sanchez Performed By: Norma Chatman, ILENE, RVT
[2023-07-18 06:36] LABS: Burr Cells 1+; Differential Comment SCANNED; Target Cells 1+
[2023-07-18 07:14] LABS: Anion Gap 9 (5-15); BUN 28 mg/dL (7-18); BUN/Creat Ratio 18.5 RATIO (10-20); Calcium,Total 8.4 mg/dL (8.5-10.1); Chloride 108 mmol/L (98-107); Cholesterol 102 mg/dL (200); Creatinine, Serum 1.51 mg/dL (0.70-1.30); EST Glomerular Filtration Rate 48 mL/min (>60); Est Glom Filt Rate - Afr Amer 58 mL/min (>60); Estimated Creatinine Clearance 40.97 ml/min; Glucose 100 mg/dL (74-106); High Density Lipoprotein 44 mg/dL; Potassium 4.2 mmol/L (3.5-5.1); Sodium Level 137 mmol/L (136-145); Triglycerides 88 mg/dL; Very Low Density Lipoprotein 18 mg/dL (5-40)
[2023-07-18] MEDS: Multivitamins,Therapeutic Tablet 1 TABLET PO (10:27)
[2023-07-18] MEDS: TICAGRELOR 90 MG TABLET PO ×2 (10:27→20:04)
[2023-07-18] MEDS: Potassium Chloride Oral Tablet 20 MEQ PO (10:27)
[2023-07-18] MEDS: APIXABAN 5 MG TABLET PO ×2 (10:27→20:04)
[2023-07-18] MEDS: dilTIAZem CD 120 MG Capsule PO ×2 (10:43→20:04)
--- NOTE | 2023-07-18 10:45 | CASEMGMT ---
CESILIA ARANA Assessment: Face to Face with pt for initial transition planning/care coordination assessment. RN YASMEEN introduced self and role at [facility], pt voices understanding and consents to assessment. Pt is A&O x4 and answers all questions appropriately at this time. Pt sitting up in bed on RA with at bedside. Care providers, pharmacy, and demographics verified/updated. Admitting Dx: dyspnea worsening PCP:Daniel Specialists:Ashley, cardio; Barney, uro; Sibalyson, pulm; Cardio in [place] Preferred [facility]acy: [facility] Insurance: [employer] Prescription Benefit: yes LNOK: Jayla Staples, ; Altagracia Millsye, dtr Living Arrangements: Pt lives with in a two story home with 3 steps to enter with a rail. Pt reports he is I in ADL's and denies concerns at home. Transportation: Pt drives self and denies concerns with transportation. DME:denies HHC/SNF: denies Pt states no concerns with going home at time of dc. Pt denies any homegoing needs. Pt has a wedding for their son on Thursday and hopes to be dc'd for this. Pt states no further concerns/needs. CM to follow. Advised pt to ask CM if any further question/concerns/needs arise, voices understanding. Pt Goal: Home Plan: Home
[2023-07-18] MEDS: Metoprolol Tartrate 5 MG/5 ML Vial IV (11:50)
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
--- NOTE | 2023-07-18 14:07 | PN_ITS ---
Subjective Subjective Patient seen and examined. She came in with a complaint of shortness of breath which have been going on for several months but gradually worsened. He came in overnight because the shortness of breath had gotten worse. He is feeling better today. He denies any chest pain, palpitations, dizziness, nausea or vomiting or any other symptoms. Review of symptoms otherwise negative. He has remained hemodynamically stable. Objective Data Objective Data Vital Signs: Vital Signs Temp Pulse Resp BP Pulse Ox O2 Del Method 98.7 F 141 H 16 97/65 97 Room Air 07/18/23 11:39 07/18/23 11:50 07/18/23 11:39 07/18/23 11:50 07/18/23 11:39 07/18/23 11:39 Oxygen Delivery Method Room Air Weight: 169 lb 5.04 oz Body Mass Index (BMI) 25.0 Intake & Output: Intake and Output for Last 24 Hours 07/16/23 07/17/23 07/18/23 23:59 23:59 23:59 Intake Total 1240 / 1240 Balance 1240 / 1240 Lab / Micro Data 07/18/23 05:20 07/18/23 05:20 Labs: Laboratory Results - last 24 hr 07/17/23 19:11: WBC 3.5 L, RBC 4.30 L, Hgb 13.5, Hct 41.0, MCV 95.3 H, MCH 31.4, MCHC 32.9, RDW Std Deviation 45.4 H, RDW Coeff of Reymundo 12.9, Plt Count 133 L, MPV 10.0, Immature Gran % (Auto) 0.300, Neut % (Auto) 85.6 H, Lymph % (Auto) 6.3 L, [place] % (Auto) 5.2, Eos % (Auto) 2.3, Baso % (Auto) 0.3, Absolute Neuts (auto) 3.0, Absolute Lymphs (auto) 0.22 L, Nucleated RBC % 0, Differential Comment SCANNED, Diff Path Review January, Sodium 135 L, Potassium 4.3, Chloride 104, Carbon Dioxide 23.0, Anion Gap 8, BUN 33 H, Creatinine 1.79 H, Estim Creat Clear Calc 34.56, Est GFR (MDRD) Af Amer 48 L, Est GFR (MDRD) Non-Af 39 L, BUN/Creatinine Ratio 18.4, Glucose 119 H, Calcium 9.2, Magnesium 2.3, Troponin I High Sens 11, B-Natriuretic Peptide 204.6 H 07/17/23 23:35: Troponin I High Sens 13 07/18/23 05:20: WBC 3.3 L, RBC 3.76 L, Hgb 11.8 L, Hct 35.1 L, MCV 93.4, MCH 31.4, MCHC 33.6, RDW Std Deviation 44.2 H, RDW Coeff of Reymundo 12.8, Plt Count 116 L, MPV 9.8, Immature Gran % (Auto) 0.300, Neut % (Auto) 80.8 H, Lymph % (Auto) 7.3 L, [place] % (Auto) 7.3, Eos % (Auto) 4.0, Baso % (Auto) 0.3, Absolute Neuts (auto) 2.6, Absolute Lymphs (auto) 0.24 L, Nucleated RBC % 0, Differential Comment SCANNED, Diff Path Review May foll, Target Cells 1+, Daniel Cells 1+, Sodium 137, Potassium 4.2, Chloride 108 H, Carbon Dioxide 20.0 L, Anion Gap 9, BUN 28 H, Creatinine 1.51 H, Estim Creat Clear Calc 40.97, Est GFR (MDRD) Af Amer 58 L, Est GFR (MDRD) Non-Af 48 L, BUN/Creatinine Ratio 18.5, Glucose 100, Calcium 8.4 L, Troponin I High Sens 13, Triglycerides 88, Cholesterol 102, LDL Cholesterol 40, VLDL Cholesterol 18, HDL Cholesterol 44, TSH 0.70 Radiography Diagnostic Testing: Radiology Impression Chest X-Ray 07/17/23 19:40 IMPRESSION: No active disease. Electronically Signed: Uche Parmar MD at 20:17 EDT , Echocardiogram 07/18/23 05:55 Interpretation Summary The estimated ejection fraction is 50 %. septal and inferobasal hypokinesis The left atrium is moderately enlarged. The right atrium is mildly enlarged. Unable to assess diastolic dysfunction. Mild (1+) mitral valve insufficiency. Mild aortic stenosis. Ordering Physician: Manuel Alvarez Referring Physician: Harris Sanchez Performed By: Norma Chatman, ILENE, RVT Physical Exam Const alert, oriented x3, no apparent distress and well nourished General Appearance: cooperative and well developed HEENT normocephalic and moist oral mucous membranes Eyes PERRL and EOMs intact bilaterally Neck no lymphadenopathy and supple Lymph Lymphatic: no lymphadenopathy noted and no lymphedema noted Resp normal respiratory effort, normal air movement and clear to auscultation bilaterally Cardio regular rate, regular rhythm, S1 normal heart sound, S2 normal heart sound and no murmurs GI normal to inspection, nondistended, normoactive bowel sounds, soft to palpation, non-tender and non-distended Extremity normal capillary refill, no clubbing, cyanosis or edema and no calf tenderness General Extremity: no tenderness to palpation of joints or extremities Neuro CN's II-XII intact bilaterally, no focal motor deficits, no sensory deficits noted and deep tendon reflexes 2+ bilaterally Motor Exam: strength 5/5 throughout and general weakness Psych thought process normal and cooperative Appearance: appropriate Assessment & Plan Assessment/Plan (1) ESTEFANY (acute kidney injury): (2) Congestive heart failure (CHF): (3) Atrial fibrillation: PLAN: Plan #Afib with RVR * patient came in with shortness of breath with had been going on for several months, and had worsened. * Heart rate has been cough poorly controlled. On Cardizem 120 mg daily and metoprolol 100 mg twice daily. Also on Eliquis. These have been on hold since admission due to blood pressure running low in the 90s. * Cardiology consulted. Cardizem resumed. It was increased to 120 mg twice daily. * Continue Eliquis. IV Lopressor as needed. * Started on amiodarone drip if heart rate remains elevated. * I feel his shortness of breath is likely precipitated by his A-fib with RVR. * #CAD s/p CABG and stents: Has had PCI of circumflex artery. On Brilinta as well as high intensity statin. #Elevated creatinine: Creatinine was mildly elevated on admission and was hydrated gently with IV fluids. Will monitor. Improving. #Hyperlipidemia: on statin #Hypothyroidism: On Synthroid. TSH is 0.7 DVT prophylaxis: On Eliquis Charges/Coding Visit Charges Inpatient E&M: 77739 Subs Hosp L2
[2023-07-18 19:18] LABS: Magnesium 2.3 mg/dL (1.6-2.6)
[2023-07-18] MEDS: Atorvastatin Calcium 20 MG Tablet PO (20:04)
[2023-07-19 03:00] VITALS: BP 92/56; PULSE 82; RESP 16; TEMP 37.1; O2SAT 99
[2023-07-19 06:00] VITALS: BMI 24.9
[2023-07-19] MEDS: Levothyroxine 50 MCG Tablet PO (06:05)
[2023-07-19 07:45] LABS: Absolute Lymphocyte Count 0.42 X10^3/uL (0.83-4.51); Absolute Neutrophil Count 2.1 X10^3/uL (2.0-7.7); Eosinophil# 0.02 X10^3/uL; Eosinophils% 0.7 % (0-5); Hematocrit 35.6 % (40-54); Hemoglobin 12.1 g/dL (13.0-16.5); Lymphocyte # 0.42 X10^3/ul (0.83-4.51); Lymphocyte % 14.8 % (19-41); Mean Corpuscular Hgb 31.8 pg (27.0-32.0); Mean Corpuscular Volume 93.4 fL (80-94); Mean Platelet Vol. 10.1 fl (6.2-12.0); Monocyte# 0.31 X10^3/uL; NRBC Flagged by Analyzer 0 % (0-5); Neutrophil # 2.08 X10^3/uL (2.7-7.7); Neutrophil % 73.5 % (47-70); POSITIVE DIFFERENTIAL YES; Platelet Count 112 K/mm3 (150-450); RBC Distribution Width CV 12.9 % (11.6-14.6); RBC Distribution Width SD 44.2 fl (35.1-43.9); Red Blood Count 3.81 M/mm3 (4.6-6.2); White Blood Count 2.8 K/mm3 (4.4-11.0)
[2023-07-19 07:49] LABS: Differential Indicated SCAN CRITERIA MET
[2023-07-19 08:03] LABS: Anion Gap 9 (5-15); BUN 30 mg/dL (7-18); BUN/Creat Ratio 21.6 RATIO (10-20); Calcium,Total 8.7 mg/dL (8.5-10.1); Chloride 110 mmol/L (98-107); Creatinine, Serum 1.39 mg/dL (0.70-1.30); EST Glomerular Filtration Rate 53 mL/min (>60); Est Glom Filt Rate - Afr Amer 64 mL/min (>60); Estimated Creatinine Clearance 44.51 ml/min; Glucose 95 mg/dL (74-106); Potassium 4.1 mmol/L (3.5-5.1); Sodium Level 138 mmol/L (136-145)
[2023-07-19 08:15] VITALS: O2SAT 98
[2023-07-19 08:31] LABS: Platelet Estimate MOD DEC (ADEQ)
[2023-07-19 09:20] VITALS: BP 101/67; PULSE 114; RESP 14; TEMP 36.6
[2023-07-19] MEDS: Multivitamins,Therapeutic Tablet 1 TABLET PO ×2 (09:28→09:29)
[2023-07-19] MEDS: dilTIAZem CD 120 MG Capsule PO (09:28)
[2023-07-19] MEDS: TICAGRELOR 90 MG TABLET PO (09:28)
[2023-07-19 09:29] VITALS: BP 101/67; PULSE 114
[2023-07-19] MEDS: Metoprolol Tartrate 100 MG Tablet PO (09:29)
[2023-07-19] MEDS: APIXABAN 5 MG TABLET PO (09:29)
[2023-07-19 13:00] VITALS: BP 97/56; PULSE 16; RESP 16; TEMP 36.6
--- NOTE | 2023-07-19 13:03 | DCINST_ITS ---
Discharge Instructions Diet Discharge Diet: Low fat / Low cholesterol Activity Discharge Activity: Return to Normal Activity Weight Bearing Status: Weight bearing as tolerated Dressing / Incision Call your doctor if you observe: Fever of 101 or Higher, Shortness of breath, Dizziness, Swelling in the ankles and Chest pain Follow Up Care Test Results: Test results from this visit will be discussed in further detail at your follow- up appointment, if applicable. Discharge Plan Admission Admit Date/Time: 07/17/23 21:46 Primary Reason for Your Visit: shortness of breath Attending Provider: Kylie Chambers Primary Care Provider: Harris Sanchez Consulting Providers: Oly Fernandez; Manuel Alvarez Instructions Patient Instructions: ED Dyspnea Discharge Orders/Prescriptions Prescriptions: New diltiazem HCl 120 mg Capsule,Extended Release 24hr 120 mg PO Q12 Qty: 60 2RF Continued metoprolol tartrate 50 mg tablet 100 mg PO BID Qty: 180 3RF multivitamin 1 EACH tablet 1 ea PO DAILY levothyroxine 50 MCG tablet 50 mcg PO DAILY rosuvastatin 10 mg tablet 10 mg PO DAILY Brilinta 90 mg Tablet 90 mg PO BID Qty: 180 2RF furosemide [Lasix] 40 mg tablet 40 mg PO DAILY potassium chloride 20 mEq tablet extended release 20 meq PO DAILY lisinopril 2.5 mg tablet 2.5 mg PO QDAY Qty: 90 3RF Eliquis 5 mg tablet 5 mg PO BID Discontinued diltiazem HCl [Cartia XT] 120 mg capsule,extended release 24hr 120 mg PO Q24H Referrals / Follow Up: Cristian Ramirez MD [Med Staff - Active Staff] - Within 2 Weeks Harris Sanchez MD [Primary Care Provider] - Within 2 Weeks Disposition Disposition (needs filled in before D/C Order can be placed): Home, Self Care
--- NOTE | 2023-07-19 13:08 | DS.PCM_ITS ---
Providers Date of Admission: 07/17/23 Date of Discharge: 07/19/23 Primary Care Physician: Dr. Harris Sanchez MD Consultations 07/17/23 23:16 Consult: Cardiology Routine Consulting Provider: Oly Fernandez Reason for Consult: Dyspea on exertion, etiology unclear, doesn't seem HF EMERGENT Consult: No MD Notified: Yes Date Notified: 07/17/23 Time Notified: 23:16 Method of Notification: Verbal Reason For Visit: DYSPNEA WORSENING Diagnosis Discharge Diagnosis (1) ESTEFANY (acute kidney injury): Status: Acute Code(s): N17.9 - Acute kidney failure, unspecified (2) Congestive heart failure (CHF): Status: Acute Code(s): I50.9 - Heart failure, unspecified (3) Atrial fibrillation: Status: Acute Code(s): I48.91 - Unspecified atrial fibrillation Plan #Afib with RVR * patient came in with shortness of breath with had been going on for several months, and had worsened. * Heart rate has been cough poorly controlled. On Cardizem 120 mg daily and metoprolol 100 mg twice daily. Also on Eliquis. These have been on hold since admission due to blood pressure running low in the 90s. * Cardiology consulted. Cardizem resumed. It was increased to 120 mg twice daily. * Continue Eliquis. IV Lopressor as needed. * Started on amiodarone drip if heart rate remains elevated. * I feel his shortness of breath is likely precipitated by his A-fib with RVR. * #CAD s/p CABG and stents: Has had PCI of circumflex artery. On Brilinta as well as high intensity statin. #Elevated creatinine: Creatinine was mildly elevated on admission and was hydrated gently with IV fluids. Will monitor. Improving. #Hyperlipidemia: on statin #Hypothyroidism: On Synthroid. TSH is 0.7 DVT prophylaxis: On Eliquis Medications at Discharge Home Medications levothyroxine 50 mcg tablet 50 mcg PO DAILY THYROID 01/14/18 multivitamin 1 ea PO DAILY SUPPLEMENT 01/14/18 rosuvastatin 10 mg tablet 10 mg PO DAILY CHOLESTEROL 01/15/18 lisinopril 2.5 mg tablet 2.5 mg PO QDAY blood pressure #90 tabs 10/08/18 ticagrelor 90 mg tablet (Brilinta) 90 mg PO BID #180 tabs 11/25/22 apixaban 5 mg tablet (Eliquis) 5 mg PO BID 06/08/23 metoprolol tartrate 50 mg tablet 100 mg (2 x 50 mg) PO BID This is a dose increase #180 tabs 06/25/23 furosemide 40 mg tablet (Lasix) 40 mg PO DAILY edema, SOB 07/17/23 potassium chloride 20 mEq tablet,extended release 20 meq PO DAILY 07/17/23 diltiazem HCl 120 mg capsule,extended release 24 hr 120 mg PO Q12 #60 caps 07/19/23 Hospital Course Operations None Procedures None Summary of Care Provided Minutes Spent on Discharge: 55 Hospital Course: Patient is a 78-year-old male with a past medical history as outlined who was admitted through the ED on 07/07/2023 with a complaint of shortness of breath which has been going on for several weeks. It was worsened with mild exertion. He did not have any lower extremity edema and denied any chest tightness or dizziness or lightheadedness. He had been seen in [facility] ED the day before admission and found to be in A-fib with RVR. Heart rate was controlled and he was discharged to see his PCP. However his symptoms recurred so he came back into the ED. In the ED heart rate was initially noted to be in the 150s. Chest x-ray showed no acute cardiopulmonary process and no pulmonary edema. He was admitted to be managed for shortness of breath which was thought to be due to his A-fib with RVR. His Cardizem was increased from 120 mg daily to 120 mg twice daily. He was continued on his metoprolol 100 mg twice daily. Cardiology was consulted and did not think his symptoms were due to heart failure but likely due to the A-fib with RVR. His heart rate control improved and he felt better. He was discharged home on 07/19/2023. He is to follow-up with his primary care doctor and cardiology within 1 to 2 weeks. He was discharged on p.o. Cardizem 120 mg twice daily as well as p.o. metoprolol 100 mg twice daily. Patient seen and examined prior to discharge. He felt much better. He had no complaints. Review of systems otherwise negative. Labs and vitals reviewed. Home medication reviewed and reconciled. Physical Exam Const alert, oriented x3, no apparent distress and well nourished General Appearance: cooperative, comfortable and well developed HEENT normocephalic, head/scalp atraumatic, hearing grossly normal bilaterally and moist oral mucous membranes Mouth: oral and palatal mucosa normal Eyes PERRL and EOMs intact bilaterally Neck no lymphadenopathy and supple Lymph Lymphatic: no lymphadenopathy noted and no lymphedema noted Resp normal respiratory effort, normal air movement and clear to auscultation bilaterally Cardio regular rate, regular rhythm, S1 normal heart sound, S2 normal heart sound and no murmurs GI normal to inspection, nondistended, normoactive bowel sounds, soft to palpation, non-tender and non-distended Extremity normal to inspection, full ROM, normal capillary refill, no clubbing, cyanosis or edema and no calf tenderness General Extremity: no tenderness to palpation of joints or extremities Skin no rashes or lesions noted Neuro oriented x3, CN's II-XII intact bilaterally, moves all extremities, no focal motor deficits, no sensory deficits noted and deep tendon reflexes 2+ bilaterally Sensorium / Orientation: awake and alert Motor Exam: strength 5/5 throughout and general weakness Psych thought process normal and cooperative Appearance: appropriate Weight / BMI Weight Weight: 168 lb 10.458 oz Body Mass Index (BMI) 24.9 ABG / Lab / Microbiology Data 07/19/23 06:10 07/19/23 06:10 Laboratory: Laboratory Results - last 24 hr 07/18/23 05:20: Magnesium 2.3 07/19/23 06:10: WBC 2.8 L, RBC 3.81 L, Hgb 12.1 L, Hct 35.6 L, MCV 93.4, MCH 31.8, MCHC 34.0, RDW Std Deviation 44.2 H, RDW Coeff of Reym[place] 12.9, Plt Count 112 L, MPV 10.1, Immature Gran % (Auto) 0.000, Neut % (Auto) 73.5 H, Lymph % (Auto) 14.8 L, [place] % (Auto) 11.0 H, Eos % (Auto) 0.7, Baso % (Auto) 0.0, Absolute Neuts (auto) 2.1, Absolute Lymphs (auto) 0.42 L, Nucleated RBC % 0, Diff Path Review May foll, Platelet Estimate MOD DEC, Sodium 138, Potassium 4.1, Chloride 110 H, Carbon Dioxide 19.0 L, Anion Gap 9, BUN 30 H, Creatinine 1.39 H, Estim Creat Clear Calc 44.51, Est GFR (MDRD) Af Amer 64, Est GFR (MDRD) Non-Af 53 L, BUN/Creatinine Ratio 21.6 H, Glucose 95, Calcium 8.7 D/C Instructions Discharge Diet: Low fat / Low cholesterol Discharge Activity: Return to Normal Activity Weight Bearing Status: Weight bearing as tolerated Call your doctor if you observe: Fever of 101 or Higher, Shortness of breath, Dizziness, Swelling in the ankles and Chest pain Meaningful Use Info Meaningful Use Diagnoses (Choose all that apply): None applicable Discharge Plan Admission Admit Date/Time: 07/17/23 21:46 Primary Reason for Your Visit: shortness of breath Attending Provider: Kylie Chambers Primary Care Provider: Harris Sanchez Consulting Providers: Oly Fernandez; Manuel Alvarez Instructions Patient Instructions: ED Dyspnea Discharge Orders/Prescriptions Prescriptions: New diltiazem HCl 120 mg Capsule,Extended Release 24hr 120 mg PO Q12 Qty: 60 2RF Continued metoprolol tartrate 50 mg tablet 100 mg PO BID Qty: 180 3RF multivitamin 1 EACH tablet 1 ea PO DAILY levothyroxine 50 MCG tablet 50 mcg PO DAILY rosuvastatin 10 mg tablet 10 mg PO DAILY Brilinta 90 mg Tablet 90 mg PO BID Qty: 180 2RF furosemide [Lasix] 40 mg tablet 40 mg PO DAILY potassium chloride 20 mEq tablet extended release 20 meq PO DAILY lisinopril 2.5 mg tablet 2.5 mg PO QDAY Qty: 90 3RF Eliquis 5 mg tablet 5 mg PO BID Discontinued diltiazem HCl [Cartia XT] 120 mg capsule,extended release 24hr 120 mg PO Q24H Referrals / Follow Up: Cristian Ramirez MD [Med Staff - Active Staff] - Within 2 Weeks Harris Sanchez MD [Primary Care Provider] - Within 2 Weeks Disposition Disposition (needs filled in before D/C Order can be placed): Home, Self Care Charges/Coding Visit Charges Inpatient E&M: 04483 Disch Hosp >30min
[2023-07-21 10:17] LABS: Pathologist Review Reviewed
[2023-07-21 10:25] LABS: Pathologist Review Reviewed
[2023-07-21 10:25] LABS: Pathologist Review Reviewed
== END 2023-07-19 13:43 | disposition home or self-care (01) | DRG 309 ==
LOC: ED 22:11 → PCU 22:14
PROVIDERS: Admitting Provider Internal Medicine; Emergency Provider Emergency Medicine; PCP Family Medicine; Visit Provider Student in an Organized Health Care Education/Training Program
DX: I48.0 Paroxysmal atrial fibrillation (principal); D68.69 Other thrombophilia; I47.20 Ventricular tachycardia, unspecified; E03.9 Hypothyroidism, unspecified; E78.5 Hyperlipidemia, unspecified; I25.10 Atherosclerotic heart disease of native coronary artery without angina pectoris; Z95.1 Presence of aortocoronary bypass graft; R94.4 Abnormal results of kidney function studies; Z66 Do not resuscitate; Z95.5 Presence of coronary angioplasty implant and graft; Z95.818 Presence of other cardiac implants and grafts; Z79.01 Long term (current) use of anticoagulants; Z79.02 Long term (current) use of antithrombotics/antiplatelets; Z79.899 Other long term (current) drug therapy
CPT/HCPCS: 36415; 71045; 80048; 80061; 83735; 83880; 84443; 84484; 85025; 93005; 93308; 94668; 99285; J7030; Q9957; A4216; C8924

== ENCOUNTER 2023-07-28 10:16 | Day surgery (SDC) | payer MEDICARE, SELFPAY ==
[2023-07-27 07:55] VITALS: BMI 24.9
--- NOTE | 2023-07-28 12:18 | PCM.OP.PRO ---
Procedure Report Date of Procedure: 07/28/23 DC cardioversion 78-year-old man with a history of coronary artery disease status post coronary bypass surgery valve disease who is in persistent atrial fibrillation. Patient was brought to the cardiac catheterization lab in the postabsorptive nonsedated state. Informed consent was obtained by Dr. Reed of the critical care division. Anterior-posterior pads were applied. The patient was then administered 40 mg of intravenous propofol and 200 J of synchronized DC cardioversion energy were applied with prompt reversal to sinus rhythm. Conclusion: Successful DC cardioversion from atrial fibrillation to sinus rhythm. Discontinue diltiazem. Continue current medication. Adjust medications as per EKG in a week.
--- NOTE | 2023-07-28 12:20 | PCM.OP.PRO ---
Procedure Report Date of Procedure: 07/28/23 CONSCIOUS SEDATION REPORT DATE OF SERVICE: July 28, 2023 BRIEF HISTORY OF PRESENT ILLNESS: The patient is a 78-year-old male who presented to [facility] for elective outpatient cardioversion due to underlying atrial fibrillation. The patient denied any prior anesthetic complications. He is systemically anticoagulated on Eliquis. His last surface echocardiogram demonstrated an ejection fraction of approximately 50%. PHYSICAL EXAMINATION: VITAL SIGNS: Reviewed and were acceptable. GENERAL: The patient is a male, in no apparent distress, speaking in full sentences. HEENT: Normocephalic, atraumatic. Mucous membranes are moist and pink. Good mouth opening noted. Trachea is midline. Good neck mobility. CHEST: S1, S2 irregularly irregular. No murmurs, rubs or gallops were noted. LUNGS: Clear to auscultation bilaterally without appreciable wheezes, rales or rhonchi. ABDOMEN: Soft, nontender, nondistended. Positive bowel sounds. EXTREMITIES: There is no clubbing, cyanosis or edema. ASA Class: II DESCRIPTION OF PROCEDURE: After confirmation of informed consent, the patient's anesthesia plan was reviewed in detail. Propofol was chosen. Risks and benefits were reviewed and the patient agreed to proceed. At 1201, the patient was given 40 mg of propofol. The patient achieved an appropriate level of sedation and was given a 200 joule synchronized cardioversion by Dr. Ramirez at the bedside. This was successful in achieving normal sinus rhythm. The patient was monitored until 1214, at which time he reached his baseline mental status and function. The patient tolerated the procedure well. COMPLICATIONS: None ESTIMATED BLOOD LOSS: None RECOMMENDATIONS: Okay to recover in usual fashion. Procedures Pulmonary 9xxxx: [id number] Con Sedation
== END 2023-07-28 16:05 | disposition home or self-care (01) ==
LOC: CLSP 10:22
PROVIDERS: PCP Family Medicine; Referring Provider Internal Medicine Cardiovascular Disease; Visit Provider Internal Medicine Cardiovascular Disease
DX: I48.19 Other persistent atrial fibrillation (principal); I48.0 Paroxysmal atrial fibrillation; I25.10 Atherosclerotic heart disease of native coronary artery without angina pectoris; G47.33 Obstructive sleep apnea (adult) (pediatric); I25.5 Ischemic cardiomyopathy; E78.2 Mixed hyperlipidemia; Z95.5 Presence of coronary angioplasty implant and graft; Z95.1 Presence of aortocoronary bypass graft; Z79.899 Other long term (current) drug therapy; Z79.01 Long term (current) use of anticoagulants
CPT/HCPCS: 92960; 93005; J7040

== ENCOUNTER → 2023-08-04 | Outpatient (CLI) | payer MEDICARE, SELFPAY ==
[2023-08-04 11:54] LABS: Absolute Lymphocyte Count 0.77 X10^3/uL (0.83-4.51); Absolute Neutrophil Count 1.8 X10^3/uL (2.0-7.7); Hematocrit 39.1 % (40-54); Hemoglobin 13.3 g/dL (13.0-16.5); Lymphocyte # 0.77 X10^3/ul (0.83-4.51); Lymphocyte % 24.2 % (19-41); Mean Corpuscular Hgb 31.9 pg (27.0-32.0); Mean Corpuscular Volume 93.8 fL (80-94); Mean Platelet Vol. 9.2 fl (6.2-12.0); Monocyte# 0.62 X10^3/uL; Monocyte% 19.5 % (0-10); NRBC Flagged by Analyzer 0 % (0-5); Neutrophil # 1.78 X10^3/uL (2.7-7.7); Platelet Count 216 K/mm3 (150-450); RBC Distribution Width CV 12.4 % (11.6-14.6); RBC Distribution Width SD 42.8 fl (35.1-43.9); Red Blood Count 4.17 M/mm3 (4.6-6.2); White Blood Count 3.2 K/mm3 (4.4-11.0)
[2023-08-04 12:38] LABS: BNP,B-Type NATRIURETIC PEPTIDE 315.1 pg/mL (0-100)
[2023-08-04 12:57] LABS: Anion Gap 4 (5-15); BUN 30 mg/dL (7-18); BUN/Creat Ratio 22.1 RATIO (10-20); Calcium,Total 9.2 mg/dL (8.5-10.1); Chloride 105 mmol/L (98-107); Creatinine, Serum 1.36 mg/dL (0.70-1.30); EST Glomerular Filtration Rate 54 mL/min (>60); Est Glom Filt Rate - Afr Amer 65 mL/min (>60); Glucose 104 mg/dL (74-106); Potassium 4.3 mmol/L (3.5-5.1); Sodium Level 136 mmol/L (136-145)
== END | disposition home or self-care (01) ==
LOC: LAB 11:38
PROVIDERS: PCP Family Medicine; Referring Provider Nurse Practitioner Family; Visit Provider Nurse Practitioner Family
DX: I49.3 Ventricular premature depolarization (principal); R06.09 Other forms of dyspnea; Z95.5 Presence of coronary angioplasty implant and graft
CPT/HCPCS: 36415; 80048; 83880; 85025

== ENCOUNTER → 2023-10-21 | Outpatient (CLI) | payer MEDICARE, SELFPAY ==
--- NOTE | 2023-10-21 15:02 | CT_ITS ---
STUDY: CT CHEST WITHOUT CONTRAST REASON FOR EXAM: Male, 78 years old. HTN RADIATION DOSAGE (If Supplied By Facility): CTDIvol = ( 12.87 ) mGy, DLP = ( 517.67 ) mGycm TECHNIQUE: Transaxial imaging was performed without the administration of intravenous contrast material. Individualized dose optimization techniques were used for this CT. COMPARISON: No relevant priors. FINDINGS: CHEST The lungs are normal. There is no demonstrated pleural abnormality. Sternal cerclage wires and vascular clips are present from a prior sternotomy and coronary artery bypass graft procedure (CABG). There are calcifications of the coronary arteries. Left atrial enlargement. Normal mediastinum. Normal hilar regions. Normal unenhanced pulmonary arteries. There is atherosclerotic calcification of the aortic arch with tortuosity and elongation of the aortic arch and descending thoracic aorta. There are multi-level degenerative changes of the thoracic spine. Large hiatal hernia. Multiple gallstones CT/Chest without Contrast IMPRESSION: Left atrial enlargement. Coronary artery calcification. Large hiatal hernia. Multiple gallstones. Electronically Signed: Reyes Sanchez MD at 15:24 EST ,
--- OUTSIDE RECORDS SUMMARY | 2023-10-21 15:59 | XMS RPT_ITS | CCD ---
Author Name Unknown Address [address] [place] [address] Organization [facility] Care Team Providers Care Can Closing Machine Operator Name Role Phone HARRIS WOLF Unavailable Unavailable HARRIS WOLF Unavailable Unavailable HARRIS WOLF Unavailable Unavailable HARRIS WOLF Unavailable Unavailable HARRIS WOLF Unavailable Unavailable HARRIS WOLF Unavailable Unavailable HARRIS WOLF Unavailable Unavailable HARRIS WOLF Unavailable Unavailable HARRIS WOLF Unavailable Unavailable HARRIS WOLF Unavailable Unavailable HARRIS WOLF Unavailable Unavailable CASTLE, SRIDHAR W Unavailable Unavailable CASTLE, SRIDHAR W Unavailable Unavailable HARRIS WOLF MD Primary Care Physician Francisco J PT, Tiffanie Unavailable Unavailable Ashley ROSARIO, Cristian Ceron Unavailable Harris Wolf MD Primary Care Provider [phone] WILDER AGUILAR Referring Unavailable HARRIS WOLF Primary Care Unavailable HARRIS WOLF Primary Care Unavailable WILDER AGUILAR Referring Unavailable WILDER AGUILAR Referring Unavailable HARRIS WOLF Primary Care Unavailable AMADO, DELON G Admitting Unavailable AMADO, DELON G Attending Unavailable HARRIS WOLF Referring Unavailable AMADO DELON G Attending Unavailable HARRIS WOLF Primary Care Unavailable ASHLEY ROSARIO, MR CRISTIAN Ceron Attending Unavailable HARRIS WOLF MD Primary Care Unavailable HUSEYIN BODY ART TECHNICIAN-AIRLINE PILOT/FIRST OFFICER, EFRAIN Attending Margarita HARRIS Onofre MD Primary Care Unavailable HARRIS WOLF MD Attending Unavailable HARRIS WOLF MD Primary Care Unavailable DR LOLA CHRISTIANSEN DO Attending Unavailable HARRIS WOLF MD Primary Care Unavailable HARRIS WOLF MD Attending Unavailable HARRIS WOLF MD Primary Care Unavailable OMID YATES Attending HARRIS Up MD Primary Care Unavailable HARRIS WOLF MD Attending Unavailable HARRIS WOLF MD Primary Care Unavailable HARRIS WOLF MD Attending Unavailable HARRIS WOLF MD Primary Care Unavailable LEO ROSARIO, DR MAXIMUS ALMANZA Attending HARRIS [place] MD Primary Care Unavailable Allergies Allergy Classification Reported Allergen(s) Allergy Type Date of Onset Reaction(s) Facility (17 sources) Penicillins; Translations: [PENICILLINS] Propensity to adverse reactions to drug (disorder) 6 AOF, Unknown [facility] Repository Medications Current Medications Medication Drug Class(es) Dates Sig (Normalized) Sig (Original) apixaban 5 mg oral tablet (4 sources) Factor Xa Inhibitor Start: 06-03-2023 End: 05-28-2024 Eliquis 5 mg oral tablet Dose : 5 mg = 1 tab(s), Oral, BID, # 180 tab(s), 3 Refill(s), Pharmacy: [id number], 175, cm, 06/03/23 15:02:00 EDT, Height, 80.8, kg, 06/03/23 15:02:00 EDT, Dosing Weight Start Date: 06/03/23 Stop Date: 05/28/24 Status: Ordered Problems Active Problems Problem Classification Problem Date Documented Date Episodic/Chronic Cancer of prostate (16 sources) Malignant tumor of prostate 11-14-2019 Chronic Cardiac dysrhythmias (20 sources) Ventricular tachycardia; Translations: [Paroxysmal atrial fibrillation] Onset: 03-26-2017 11-14-2019 Chronic Coronary atherosclerosis and other heart disease (20 sources) Atherosclerotic heart disease of [place] coronary artery without angina pectoris; Translations: [Angina pectoris] Onset: 09-01-2017 12-06-2015 Chronic Past or Other Problems Problem Classification Problem Date Documented Da te Episodic/Chronic Syncope (5 sources) Syncope and collapse; Translations: [Syncope and collapse] Onset: 01-14-2023 01-14-2023 Episodic Results Test Name Value Interpretation Reference Range Facil ity Vital Signs Date Time Vital Sign Value Performing Clinician Faci lit 07-15-2023 20:33-0400 Blood Pressure Cuff Size ZACK SARAH [facility] 07-15-2023 20:33-0400 Blood Pressure Location ZACK SARAH [facility] 07-15-2023 20:33-0400 Blood Pressure Method ZACK SARAH MD [facility] 07-15-2023 20:33-0400 Diastolic Blood Pressure Non-Invasive 62 1 ZACK SARAH MD [facility] 07-15-2023 20:33-0400 Heart rate 102 /min ZACK SARAH MD [facility] 07-15-2023 20:33-0400 Respiratory rate 18 /min ZACK SARAH MD [facility] 07-15-2023 20:33-0400 Systolic Blood Pressure Non-Invasive 93 1 ZACK SARAH MD [facility] 07-15-2023 19:21-0400 Blood Pressure Cuff Size ZACK SARAH MD [facility] 07-15-2023 19:21-0400 Blood Pressure Location ZACK SARAH MD [facility] 07-15-2023 19:21-0400 Blood Pressure Method ZACK SARAH MD [facility] 07-15-2023 19:21-0400 Diastolic Blood Pressure Non-Invasive 74 1 ZACK SARAH MD [facility] 07-15-2023 19:21-0400 Systolic Blood Pressure Non-Invasive 101 1 ZACK SARAH MD [facility] 07-15-2023 19:18-0400 Blood Pressure Cuff Size ZACK SARAH MD [facility] 07-15-2023 19:18-0400 Blood Pressure Location ZACK SARAH MD [facility] 07-15-2023 19:18-0400 Blood Pressure Method ZACK SARAH MD [facility] 07-15-2023 19:18-0400 Diastolic Blood Pressure Non-Invasive 74 1 ZACK SARAH MD [facility] 07-15-2023 19:18-0400 Heart rate 120 /min ZACK SARAH MD [facility] 07-15-2023 19:18-0400 Respiratory rate 18 /min ZACK SARAH MD [facility] 07-15-2023 19:18-0400 Systolic Blood Pressure Non-Invasive 94 1 ZACK SARAH MD [facility] 07-15-2023 18:04-0400 Body temperature 98.06 [degF] ZACK SARAH MD [facility] 07-15-2023 18:04-0400 Body weight 78 kg ZACK SARAH MD [facility] 07-15-2023 18:04-0400 Heart rate 79 /min ZACK SARAH MD [facility] 07-15-2023 18:04-0400 Respiratory rate 16 /min ZACK SARAH MD [facility] Encounters Encounter Date Encounter Type Care Provider Facility Start: 07-17-2023 End: 07-18-2023 ambulatory OMID HERNANDEZ APRN-ARNAV Facility:[facility] Start: 07-17-2023 End: 07-17-2023 Patient encounter procedure OMID HERNANDEZ APRN-ARNAV [facility] Start: 07-15-2023 End: 07-15-2023 Emergency department patient visit DR OLLA CHRISTIANSEN DO Facility:[facility] Start: 07-15-2023 End: 07-15-2023 Emergency department patient visit ZACK SARAH MD [facility] Start: 07-08-2023 End: 07-13-2023 ambulatory HARRIS WOLF MD Facility:[facility] Start: 07-08-2023 End: 07-12-2023 Outreach Lab HARRIS WOLF MD [facility] Start: 05-28-2023 ambulatory WILDER Gonzalez ity:[facility] Start: 05-28-2023 End: 05-28-2023 Subsequent hospital visit by physician [facility] Pacemaker Remote Device Check Work Phone: [facility] Procedures Date Procedure Procedure Detail Performing Clinician Start: 05-28-2023 DEVICE EVALUATION Other Other Start: 12-13-2015 Coronary artery bypa ss graft operation planned HARRIS WOLF MD Start: 12-13-2015 Mitral valve structu re (body structure) HARRIS WOLF MD Plan of Treatment Date Care Activity Detail Author Start: 05-29-2023 Influenza vaccination INFLUENZA VACCINE (#1) [facility] Start: 05-26-2023 End: 05-26-2023 Patient encounter procedure 05/26/2023 10:45 AM EDT Office Visit [facility] [address] [place] [address] Delon Monte MD [address] [place] [address] [facility] Start: 2011 Pneumococcal vaccination PNEUMOCOCCAL VACCINE SERIES (1 - PCV) [facility] Start: 1996 Zoster vaccine hzv live for subcutaneous use ZOSTER (SHINGLES) VACCINE (1 of 2) [facility] Start: 1991 Screening for malignant neoplasm of colon COLORECTAL CANCER SCREENING DISCUSSION [facility] Start: 1965 Third diphtheria, tetanus and acellular pertussis (DTaP) vaccination TDAP (ADULT) [facility] Start: 1946 COVID-19 VACCINE (#1) COVID-19 VACCINE (#1) [facility] Start: 1945 Hepatitis C screening HEPATITIS C VIRUS SCREENING [facility] Start: 1946 Tetanus vaccination TETANUS [facility] Start: 1946 Thyroid stimulating hormone measurement TSH [facility] Immunizations Immunization Date Immunization Notes Care Provider Fa [facility] 07-30-2022 influenza virus vaccine, unspecified formulation HARRIS WOLF MD [facility] 07-30-2022 [id number] mRNA [id number] vax HARRIS WOLF MD [facility] 07-30-2022 [id number](tozinam er 9a64gdropa ankita HARRIS WOLF MD [facility] 07-30-2022 [id number](tozinam era n 5y-11y)bi vac DR MAXIMUS BAILEY MD [facility] 01-24-2022 SARS-CoV-2 (COVID-19 ) mRNA-1273 vaccine HARRIS WOLF MD [facility] 08-08-2021 SARS-CoV-2 (COVID-19 ) mRNA-1273 vaccine HARRIS WOLF MD [facility] 06-19-2021 influenza virus vaccine, unspecified formulation HARRIS WOLF MD [facility] 12-24-2020 SARS-CoV-2 (COVID-19 ) mRNA-1273 vaccine HARRIS WOLF MD [facility] 11-26-2020 SARS-CoV-2 (COVID-19 ) mRNA-1273 vaccine HARRIS WOLF MD [facility] Payers Date Payer Category Payer Medicare [id number] 2017 Unknown [id number] 1946 Unknown [id number] 2.16. [id number] 1946 Unknown [id number] 2.16. [id number] 1946 Unknown [id number] 2.16. [id number] 1946 Unknown [id number] 2.16. [id number] 1946 Unknown [id number] 2.16.8 [id number] 1946 Unknown [id number] 2.16.8 [id number] 1946 Unknown [id number] 2.16.8 [id number] 1946 Unknown [id number] 2.16.8 [id number] 1946 Unknown [id number] 2.16.8 [id number] 1946 Unknown [id number] 2.16.8 [id number] 1946 Unknown [id number] 2.16.8 [id number] 1946 Unknown [id number] 2.16.8 [id number] 1946 Unknown [id number] 2.16.8 [id number] Social History Date Type Detail Facility Start: 05-17-2019 End: 09-07-2019 Never smoked tobacco (finding) [facility] Assigned At [facility] Start: 01-15-2023 Alcohol intake Ex-drinker (finding) [facility] Start: 01-15-2023 History of Social function [facility] Start: 01-15-2023 Tobacco use panel [facility] Start: 1945 Sex Assigned At Not on file [facility] Medical Equipment Procedure Code Equipment Code Equipment Origin al Text Equipment Identifier Dates Lux Dx Insertabl e Urgent Care Technician - [id number] Start: 01-14-2023 Functional Status Date Assessment Result Facility 07-15-2023 Functional Status Independent [facility] 07-15-2023 Functional Status Standard Safet y ID band on, Allergy Band on, Call device within reach, Bed in low position, Wheels locked [facility] Mental Status Date Assessment Result Facility 07-15-2023 Mental Status Orientation Oriented x 4 [facility] 07-15-2023 Mental Status [facility] Clinical Notes 07-11-2023 to 07-15-2023 LaboratoryLaboratoryLaboratoryLaboratory Note Date & Type Note Facility 07-15-2023 Hospital Discharge instructions Patient Education 07/15/2023 20:07:20 Shortness of Breath (Dyspnea) Shortness of Breath (Dyspnea) Shortness of breath is the feeling that you can't catch your breath or get enough air. It is also known as dyspnea. Dyspnea can be caused by many different conditions. They include: Acute asthma attack Worsening of chronic lung diseases such as chronic bronchitis and emphysema Heart failure. This is when weak heart muscle allows extra fluid to collect in the lungs. Panic attacks or anxiety. Fear can cause rapid breathing (hyperventilation). Pneumonia, or an infection in the lung tissue Exposure to toxic substances, fumes, smoke, or certain medicines Blood clot in the lung (pulmonary embolism). This is often from a piece of blood clot in a deep vein of the leg (deep vein thrombosis) that breaks off and travels to the lungs. Heart attack or heart-related chest pain (angina) Anemia Collapsed lung (pneumothorax) Dehydration Based on your visit today, the exact cause of your shortness of breath is not certain. Your tests don t show any of the serious causes of dyspnea. You may need other tests to find out if you have a serious problem. It s important to watch for any new symptoms or symptoms that get worse. Follow up with your healthcare provider as directed. Home care Follow these tips to take care of yourself at home: When your symptoms are better, go back to your usual activities. If you smoke, you should stop. Join a quit-smoking program or ask your healthcare provider for help. Eat a healthy diet and get plenty of sleep. Get regular exercise. Talk with your healthcare provider before starting to exercise, especially if you have other medical problems. Cut down on the amount of caffeine and stimulants you consume. Follow-up care Follow up with your healthcare provider, or as advised. If tests were done, you will be told if your treatment needs to be changed. You can call as directed for the results. If an X-ray was taken, a specialist will review it. You will be notified of any new findings that may affect your care. Call 911 Shortness of breath may be a sign of a serious medical problem. For example, it may be a problem with your heart or lungs. Call 911 if you have worsening shortness of breath or trouble breathing, especially with any of the symptoms below: Confusion or difficulty waking Fainting or loss of consciousness. Fast or irregular heartbeat Coughing up blood Pain in your chest, arm, shoulder, neck, or upper back Sweating When to seek medical advice Call your healthcare provider right away if any of these occur: Slight shortness of breath or wheezing Redness, pain or swelling in your leg, arm, or other body area Swelling in both legs or ankles Fast weight gain Dizziness or weakness Fever of 100.4 F (38 C) or higher, or as directed by your healthcare provider [id number] [employer]. [address] [place] [address]. All rights reserved. This information is not intended as a substitute for professional medical care. Always follow your healthcare professional's instructions. 07/15/2023 20:07:05 Atrial Fibrillation Atrial Fibrillation Atrial fibrillation is a condition in which the heart beats in an irregular pattern. It is caused by a problem in the heart's electrical pathways. It can be a sign of heart disease or other health problems that affect the heart. Heart palpitations are the most common symptom of atrial fibrillation. This is the feeling that your heart is fluttering, beating fast, hard, or irregular. When the heart beats too fast, it doesn't pump blood very well. This can cause other symptoms like anxiety, fatigue, shortness of breath, chest pain, dizziness, or fainting. Atrial fibrillation may come and go. It can last from a few hours to a couple of days. Or, it may become chronic, lasting for months at a time or even become permanent. Atrial fibrillation may be caused by heart disease or other conditions in the body that affect the heart: Coronary artery disease (atherosclerosis) High blood pressure Disease of the heart valves Enlarged heart Heart failure Atrial fibrillation can also occur without heart disease because of: Overactive thyroid (hyperthyroid) Chronic lung disease (COPD, emphysema, bronchitis) Heavy alcohol use Cardiac stimulants like cocaine, amphetamines, diet pills, certain decongestant cold medicines, caffeine, or nicotine Infection Blood clot in the lung (pulmonary embolus) Diabetes Chronic kidney disease Obesity Extreme athletic conditioning Treating or removing these causes will help your treatment for atrial fibrillation. It will also make it less likely for the atrial fibrillation to come back. Atrial fibrillation can alternate back and forth with another abnormal rhythm called atrial flutter. Atrial flutter is a more regular heart rhythm and is also associated with an increased stroke risk. Proper treatment can lower your risk for stroke. Home care Follow these guidelines when caring for yourself at home: Go back to your usual activities as soon as you are feeling back to normal. If you smoke, stop smoking. Contact your healthcare provider or a local stop-smoking program for help. Don't use stimulants like alcohol, cocaine, amphetamines, diet pills, certain decongestant cold medicines, caffeine, or nicotine. If your provider prescribed medicine to stop atrial fibrillation from coming back, take it exactly as directed. Some medicines must be taken every day, not just when you have symptoms. This will help them work as they should. If you were prescribed warfarin to lower your risk for stroke, have your blood tested on a regular basis as advised by your provider. This will make sure you are getting the dose that is right for you. It also lower your risk for side effects. Follow-up care Follow up with your healthcare provider, or as advised. When to seek medical advice Call your healthcare provider right away if any of these following occur: Shortness of breath or swelling in the legs gets worse Unexpected weight gain Chest pain or the sense that your heart is fluttering or beating fast or hard (palpitations) Any sign of bleeding if you are on a blood thinner Pain, redness, or swelling in one leg Also call your provider right away if you have these signs of stroke: Weakness of an arm or leg or one side of the face Difficulty with speech or vision Extreme drowsiness, confusion, dizziness, or fainting [phone] [employer]. [address] [place] [address]. All rights reserved. This information is not intended as a substitute for professional medical care. Always follow your healthcare professional's instructions. Follow Up Care 07/15/2023 18:05:09 With:Go to emergency room if symptoms worsen Address:Unknown When:2-4 days With:HARRIS WOLF MD Address: [address] [facility] [place] [address]- When:2-4 days With:LUBNA BERMUDEZ MD Address: [address] [place] [address] [phone] When:1-2 days [facility] 07-15-2023 Note Discharge Instructions Thank you for allowing [facility] to assist you with your healthcare needs. The following is important discharge information regarding your hospital visit. Diagnosis from Today's Visit Shortness of breath What to Do Next Instructions from Your Care Team No qualifying data available. Post Acute Orders No qualifying data available. You Need to Schedule the Following Appointments Follow Up with Go to emergency room if symptoms worsen When Within 2-4 days Follow Up with HARRIS WOLF MD When Within 2-4 days Where: [address] [facility] [place] [address]- Follow Up with LUBNA BERMUDEZ MD When Within 1-2 days Where: [address] [place] [address]- [phone] Allergies penicillins (Unknown) Medications Please ask your primary doctor or pharmacist before taking any other medication not listed, including over the counter drugs, herbal medications, vitamins and or supplements as they may interact with your home medications. What How Much When Why Instructions Last Dose New dilTIAZem (Cardizem CD 120 mg/ 24 hours oral capsule, extended release) 1 cap by mouth Once a day Printed Prescription Unchanged apixaban (Eliquis 5 mg oral tablet) 1 tab(s) by mouth Two (2) times a day Duration: 90 Days Unchanged furosemide (furosemide 40 mg oral tablet) 1 tab(s) by mouth Once a day Unchanged levothyroxine (levothyroxine 50 mcg (0.05 mg) oral tablet) 1 tab(s) by mouth Once a day Duration: 90 Days Unchanged lisinopril (lisinopril 2.5 mg oral tablet) 1 tab(s) by mouth Once a day Duration: 90 Days take 1 tablet by mouth once daily Unchanged metoprolol (Metoprolol Tartrate 50 mg oral tablet) 1 tab(s) by mouth Two (2) times a day Unchanged multivitamin (Multivitamin) 1 tab(s) by mouth Every day Unchanged potassium chloride (Potassium Chloride (Eqv-K-Tab) 20 mEq oral tablet, extended release) 1 tab(s) by mouth Once a day Take with food Unchanged rosuvastatin (rosuvastatin 10 mg oral tablet) 1 tab(s) by mouth Once a day Duration: 90 Days Unchanged sulfamethoxazole-trimethoprim (Bactrim DS 800 mg-160 mg oral tablet) 1 tab(s) by mouth Two (2) times a day Leg abscess Duration: 14 Days Unchanged ticagrelor (Brilinta (ticagrelor) 90 mg oral tablet) take 1 tablet by mouth twice a day Please take this list to your next doctor s visit. Bring all medications you take, including over the counter medications, herbals and other supplements with you to your doctor s visit. Patients and families are reminded to discard old lists and to update any records with all medication providers or retail pharmacies. Medication Leaflets diltiazem (oral/injection) (jason stockton) Cardizem, Cardizem CD, Cardizem LA, Cartia XT, DilTIAZem (Eqv-Cardizem CD), DilTIAZem (Eqv-Dilacor XR), DilTIAZem (Eqv-Tiazac), DilTIAZem Hydrochloride ER, DilTIAZem Hydrochloride SR, Dilt-XR, Matzim LA, Taztia XT, Tiadylt ER, Tiazac What is the most important information I should know about diltiazem? You should not use diltiazem if you have very low blood pressure, a serious heart condition such as 'sick sinus syndrome' or 'AV block' (unless you have a pacemaker), or if you have recently had a heart attack and you have a build-up of fluid in your lungs. What is diltiazem? Diltiazem oral is used in adults alone or in combination with other medicines to treat hypertension (high blood pressure) or symptoms of angina (chest pain). Diltiazem injection is used in adults to treat certain heart rhythm disorders such as atrial fibrillation or atrial flutter, or dangerously rapid heartbeats (tachycardia). Lowering blood pressure may lower your risk of a stroke or heart attack. Diltiazem may also be used for purposes not listed in this medication guide. What should I discuss with my healthcare provider before using diltiazem? You should not use diltiazem if you are allergic to it, or if you have: a serious heart condition such as 'sick sinus syndrome' or 'AV block' (unless you have a pacemaker); very low blood pressure; if your heart cannot pump blood properly; or if you have recently had a heart attack and you have a build-up of fluid in your lungs. You may not be able to use diltiazem if you have: heart failure; certain heart rhythm disorders (such as 'Afib' or atrial flutter with Umgup-Isexlwntx-Dvpsn syndrome); a heart condition that causes you to have very fast heartbeats; or if you are receiving an intravenous beta-suyapa (such as atenolol, metoprolol, or propranolol). Tell your doctor if you have ever had: congestive heart failure or heart problems; low blood pressure or slow heart rate; or liver disease. It is not known whether diltiazem will harm an unborn baby. Tell your doctor if you are or plan to become . Tell your doctor if you are . How should I use diltiazem? Follow all directions on your prescription label and read all medication guides or instruction sheets. Your doctor may occasionally change your dose. Use the medicine exactly as directed. Diltiazem injection is given into a vein by a healthcare provider. Your heart rate will be constantly monitored using an electrocardiogram or ECG (sometimes called an EKG). Your blood pressure and other vital signs will also be watched closely. Diltiazem oral is taken by mouth. Your pharmacist can provide more information about how to take this medicine. Your dose needs may change if you switch to a different brand, strength, or form of this medicine. Some forms of diltiazem oral cannot be crushed or chewed, and some forms can be opened and mixed with applesauce. Ask your pharmacist how to take this medicine. Your blood pressure and liver function will need to be checked often. If you have high blood pressure, keep using this medicine even if you feel well. High blood pressure often has no symptoms. Store at room temperature away from moisture, heat, and light. What happens if I miss a dose? Diltiazem injection is used when needed and does not have a daily dose. Call your doctor if the medicine is not effective. Take diltiazem oral as soon as you can, but skip the missed dose if it is almost time for your next dose. Do not take two doses at one time. What happens if I overdose? Seek emergency medical attention or call the Poison Help line at . Overdose symptoms may include low blood pressure, slow heart rate, severe dizziness, or fainting. What should I avoid while using diltiazem? Avoid drinking alcohol while taking diltiazem extended-release capsules. Drinking alcohol with this medicine can cause side effects. Avoid taking an herbal supplement containing Alfreda's wort. Avoid getting up too fast from a sitting or lying position, or you may feel dizzy. Avoid driving or hazardous activity until you know how this medicine will affect you. Your reactions could be impaired. What are the possible side effects of diltiazem? Get emergency medical help if you have signs of an allergic reaction (hives, difficult breathing, swelling in your face or throat) or a severe skin reaction (fever, sore throat, burning eyes, skin pain, red or purple skin rash with blistering and peeling). Call your doctor at once if you have: chest pain, fast, slow, or uneven heart rate; a light-headed feeling, like you might pass out; heart problems--swelling, rapid weight gain, feeling short of breath; or liver problems--loss of appetite, stomach pain (upper right side), tiredness, itching, dark urine, aminata-colored stools, jaundice (yellowing of the skin or eyes). Common side effects may include: swelling; infections, flu symptoms; trouble breathing; headache, dizziness, weakness; slower heart rate; pain, bruising, swelling, or irritation where the medicine was injected; nausea, upset stomach; or rash. This is not a complete list of side effects and others may occur. Call your doctor for medical advice about side effects. You may report side effects to FDA at 7-684-VSI-7613. What other drugs will affect diltiazem? Sometimes it is not safe to use certain medicines at the same time. Some drugs can affect your blood levels of other drugs you use, which may increase side effects or make the medicines less effective. Many drugs can affect diltiazem. This includes prescription and orqd-hyc-sbfbrco medicines, vitamins, and herbal products. Not all possible interactions are listed here. Tell your doctor about all other medicines you use. Where can I get more information? Your doctor or pharmacist can provide more information about diltiazem. Remember, keep this and all other medicines out of the reach of children, never share your medicines with others, and use this medication only for the indication prescribed. Every effort has been made to ensure that the information provided by [employer]. ('[employer]') is accurate, up-to-date, and complete, but no guarantee is made to that effect. Drug information contained herein may be time sensitive. [employer] information has been compiled for use by healthcare practitioners and consumers in the [place] and therefore [employer] does not warrant that uses outside of the [place] are appropriate, unless specifically indicated otherwise. [employer] drug information does not endorse drugs, diagnose patients or recommend therapy. [employer] drug information is an informational resource designed to assist licensed healthcare practitioners in caring for their patients and/or to serve consumers viewing this service as a supplement to, and not a substitute for, the expertise, skill, knowledge and judgment of healthcare practitioners. The absence of a warning for a given drug or drug combination in no way should be construed to indicate that the drug or drug combination is safe, effective or appropriate for any given patient. [facility] does not assume any responsibility for any aspect of healthcare administered with the aid of information [employer] provides. The information contained herein is not intended to cover all possible uses, directions, precautions, warnings, drug interactions, allergic reactions, or adverse effects. If you have questions about the drugs you are taking, check with your doctor, nurse or pharmacist. Copyright 1807-0416 [employer]. Version: 19.01. Revision Date: 04/24/2023. Education Materials Shortness of Breath (Dyspnea) Shortness of breath is the feeling that you can't catch your breath or get enough air. It is also known as dyspnea. Dyspnea can be caused by many different conditions. They include: Acute asthma attack Worsening of chronic lung diseases such as chronic bronchitis and emphysema Heart failure. This is when weak heart muscle allows extra fluid to collect in the lungs. Panic attacks or anxiety. Fear can cause rapid breathing (hyperventilation). Pneumonia, or an infection in the lung tissue Exposure to toxic substances, fumes, smoke, or certain medicines Blood clot in the lung (pulmonary embolism). This is often from a piece of blood clot in a deep vein of the leg (deep vein thrombosis) that breaks off and travels to the lungs. Heart attack or heart-related chest pain (angina) Anemia Collapsed lung (pneumothorax) Dehydration Based on your visit today, the exact cause of your shortness of breath is not certain. Your tests don t show any of the serious causes of dyspnea. You may need other tests to find out if you have a serious problem. It s important to watch for any new symptoms or symptoms that get worse. Follow up with your healthcare provider as directed. Home care Follow these tips to take care of yourself at home: When your symptoms are better, go back to your usual activities. If you smoke, you should stop. Join a quit-smoking program or ask your healthcare provider for help. Eat a healthy diet and get plenty of sleep. Get regular exercise. Talk with your healthcare provider before starting to exercise, especially if you have other medical problems. Cut down on the amount of caffeine and stimulants you consume. Follow-up care Follow up with your healthcare provider, or as advised. If tests were done, you will be told if your treatment needs to be changed. You can call as directed for the results. If an X-ray was taken, a specialist will review it. You will be notified of any new findings that may affect your care. Call 911 Shortness of breath may be a sign of a serious medical problem. For example, it may be a problem with your heart or lungs. Call 911 if you have worsening shortness of breath or trouble breathing, especially with any of the symptoms below: Confusion or difficulty waking Fainting or loss of consciousness. Fast or irregular heartbeat Coughing up blood Pain in your chest, arm, shoulder, neck, or upper back Sweating When to seek medical advice Call your healthcare provider right away if any of these occur: Slight shortness of breath or wheezing Redness, pain or swelling in your leg, arm, or other body area Swelling in both legs or ankles Fast weight gain Dizziness or weakness Fever of 100.4 F (38 C) or higher, or as directed by your healthcare provider [id number] [employer]. [address] [place] [address]. All rights reserved. This information is not intended as a substitute for professional medical care. Always follow your healthcare professional's instructions. Atrial Fibrillation Atrial fibrillation is a condition in which the heart beats in an irregular pattern. It is caused by a problem in the heart's electrical pathways. It can be a sign of heart disease or other health problems that affect the heart. Heart palpitations are the most common symptom of atrial fibrillation. This is the feeling that your heart is fluttering, beating fast, hard, or irregular. When the heart beats too fast, it doesn't pump blood very well. This can cause other symptoms like anxiety, fatigue, shortness of breath, chest pain, dizziness, or fainting. Atrial fibrillation may come and go. It can last from a few hours to a couple of days. Or, it may become chronic, lasting for months at a time or even become permanent. Atrial fibrillation may be caused by heart disease or other conditions in the body that affect the heart: Coronary artery disease (atherosclerosis) High blood pressure Disease of the heart valves Enlarged heart Heart failure Atrial fibrillation can also occur without heart disease because of: Overactive thyroid (hyperthyroid) Chronic lung disease (COPD, emphysema, bronchitis) Heavy alcohol use Cardiac stimulants like cocaine, amphetamines, diet pills, certain decongestant cold medicines, caffeine, or nicotine Infection Blood clot in the lung (pulmonary embolus) Diabetes Chronic kidney disease Obesity Extreme athletic conditioning Treating or removing these causes will help your treatment for atrial fibrillation. It will also make it less likely for the atrial fibrillation to come back. Atrial fibrillation can alternate back and forth with another abnormal rhythm called atrial flutter. Atrial flutter is a more regular heart rhythm and is also associated with an increased stroke risk. Proper treatment can lower your risk for stroke. Home care Follow these guidelines when caring for yourself at home: Go back to your usual activities as soon as you are feeling back to normal. If you smoke, stop smoking. Contact your healthcare provider or a local stop-smoking program for help. Don't use stimulants like alcohol, cocaine, amphetamines, diet pills, certain decongestant cold medicines, caffeine, or nicotine. If your provider prescribed medicine to stop atrial fibrillation from coming back, take it exactly as directed. Some medicines must be taken every day, not just when you have symptoms. This will help them work as they should. If you were prescribed warfarin to lower your risk for stroke, have your blood tested on a regular basis as advised by your provider. This will make sure you are getting the dose that is right for you. It also lower your risk for side effects. Follow-up care Follow up with your healthcare provider, or as advised. When to seek medical advice Call your healthcare provider right away if any of these following occur: Shortness of breath or swelling in the legs gets worse Unexpected weight gain Chest pain or the sense that your heart is fluttering or beating fast or hard (palpitations) Any sign of bleeding if you are on a blood thinner Pain, redness, or swelling in one leg Also call your provider right away if you have these signs of stroke: Weakness of an arm or leg or one side of the face Difficulty with speech or vision Extreme drowsiness, confusion, dizziness, or fainting [id number] [employer]. [address] [place] [address]. All rights reserved. This information is not intended as a substitute for professional medical care. Always follow your healthcare professional's instructions. Additional Information VACCINATE! IT SAVES LIVES! Members of the community who have not yet received the COVID-19 vaccine and would like to receive it can visit one of [facility] vaccine clinics. There are many vaccine clinic locations within the [facility]. For locations and available times, please visit [email or web address] [email or web address] It is important to note that some COVID mobile vaccine clinics are held outdoors and may be canceled in rainy or stormy conditions. To learn more about pediatric vaccinations (ages 5-11), we invite you to visit the [facility] webpage. https://www.[email or web address].org/p ages/2404-Zlogu-Uoesjtbbaqk-Freq idexsg-Cmkuu-Mpzguibcv.html To learn more about the COVID-19 vaccine, we invite you to visit the CDC website for a list of frequently asked questions. https://www.cdc.gov/coronavirus/ 2019-ncov/vaccines/faq.html [facility] Patient Portal Access Instructions: Stay connected with your healthcare team and access your personal medical information anytime with the [facility] Patient Portal. If you would like a full copy of your medical records please contact the [facility] Medical Records Department Thursday through Thursday between 8a.m. and 4:30p.m. Please follow the directions below to access the portal: 1.Access the email account you provided upon registration to the hospital.2.Look for an invitation email from [facility].3.Open the email and access the invitation link: Accept Invitation to [facility]4.Fill in the required quintana to create your account. Sign into [email or web address] with your username and password that you created in the above steps to stay up to date. You can then view a summary of results, a summary of your visits, and the ability to download your summaries to your computer or send the information securely to a physician. Remember that your healthcare information is confidential, so carefully consider who you will allow to register on the [employer] Patient Portal for access to your information. You can also access the [facility] Patient Portal on the [employer] kristian. Simply click on Health Records under Health Data and then click on the [facility] logo. HOW TO SAFELY DISPOSE OF PRESCRIPTION MEDICATIONS Please use one of the following methods to safely dispose of your unused medications. 1.Use a drug disposal kit: the drug disposal pouch allows you to safely discard your old and unused drugs. Ask your nurse to give you one when you are discharged.2.Visit a local take-back location: Many local pharmacies and police departments have programs that collect old and unwanted prescription drugs. Call your local pharmacy or go to http://Cigital.PANOSOL/2P2Ql6c to find one close to you.3.Make use of household items: Use cat litter or old coffee grounds to dispose medications if other options are not available. Mix your drugs with these household products, seal them in an airtight container and throw it into the garbage. Call [facility]: [phone] to be sure your drugs can be disposed of in this way. Some medicines may require a different approach.4.Never flush your medications down the toilet. IF YOU HAVE BEEN PRESCRIBED AN OPIOIDS FOR PAIN If you have been prescribed an opioid (such as hydrocodone, oxycodone or morphine), it is critical to understand the possible side effects and risks of opioid pain medications. Even when taken as directed, opioids can have several side effects including: Tolerance, meaning you might need to take more of a medication for the same pain relief. Nausea, vomiting and/or constipation. Sleepiness, dizziness, dry mouth, confusion, depression or itching. Physical dependence, meaning you have withdrawal symptoms when a medication is stopped ? this can develop within a few days. KNOW YOUR RESPONSIBILITIES It is important to know exactly how much and how often to take the opioid pain medications you are prescribed. Never take opioids in higher amounts or more often than prescribed. Do not combine opioids with alcohol or other drugs that cause drowsiness, such as benzodiazepines, also known as benzos, including diazepam and alprazolam, muscle relaxants or sleep aids. Never sell or share prescription opioids. This is illegal. Store opioids in a secure place and out of reach of others (including children, family, friends and visitors). The last page(s) of this document has been signed and retained as a CHART COPY Signatures Patient Education Materials Shortness of Breath (Dyspnea) Atrial Fibrillation Medication Leaflets diltiazem (oral/injection) My discharge plan and instructions have been reviewed and explained to me and I,STEFAN JACKIE W understand my current condition and have read and understand these discharge instructions. I have received a written copy of the plan/instructions. If I have questions, I am aware that I should contact my doctor. 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 States that this has been ongoing for weeks and became worse today chest pain FINDINGS: Sternotomy fixation wires are noted. Cardiac monitoring device. The cardiomediastinal silhouette appears stable. There is no focal consolidation. There is no pulmonary edema. There is no evidence of pleural effusion. There is no evidence of pneumothorax. No fracture is identified. IMPRESSION: No acute abnormality is identified. Interpreted by: Dylan Finley Preliminary Report By: Dylan Finley Electronically signed By Dylan Finley Dictated Date: 07/15/2023 7:26:00 PM Prelim Date: 07/15/2023 7:26:41 PM Sign Date: 07/15/2023 7:26:41 PM Ordering Provider: NAKITA NOLAN [facility] 07-15-2023 Note Atrial fibrillation Nonspecific intraventricular conduction delay Borderline repol abnormality, diffuse leads Compared to ECG at 11/18/2020 07:35:47 Compared to ECG at 12/17/2015 06:15:18 Electronic Signature: LOLA CHRISTIANSEN DO 07/15/2023 18:23:53 [facility] 07-11-2023 Note . MICRO - Microbiology PROCEDURE: Culture Wound Aerobic with Gram Stain [*1] SOURCE: Pustule BODY SITE: Leg L COLLECTED DATE/TIME: 07/09/2023 16:58 EDT RECEIVED DATE/TIME: 07/09/2023 19:08 EDT START DATE/TIME: 07/09/2023 19:08 EDT FREE TEXT SOURCE: FINAL REPORTS Final Report [] Verified Date/Time/Personnel: 07/11/2023 10:09 EDT No growth at 48 hours. PRELIMINARY REPORTS Preliminary Report [] Verified Date/Time/Personnel: 07/10/2023 12:45 EDT No growth to date STAINS GS [] Verified Date/Time/Personnel: 07/09/2023 19:50 EDT No organisms seen. Performing Locations *1: This test was performed at: [facility], [address] [place] [address], [facility] , [facility] ([place]) Evaluation + Plan note Future Appointments Appointment Date:09/26/2021 04:00:00 PM Scheduled Provider:HARRIS WOLF MD Location:[facility] Appointment Type:PC Wellness Primetime Enhanced Future Scheduled TestsThyroid Stimulating Hormone 03/08/21Free T4 03/08/21Lipid Profile 09/07/21Complete Metabolic Panel 09/07/21 [facility] Evaluation + Plan note Future Appointments Appointment Date:03/20/2022 04:30:00 PM Scheduled Provider:HARRIS WOLF MD Location:[facility] Appointment Type:PC OV Future Scheduled TestsThyroid Stimulating Hormone 03/08/21Free T4 03/08/21Lipid Profile 03/27/22Complete Metabolic Panel 03/27/22 [facility] Evaluation + Plan note Future Appointments Appointment Date:03/20/2022 04:30:00 PM Scheduled Provider:HARRIS WOLF MD Location:[facility] Appointment Type:PC Wellness [facility] Evaluation + Plan note Future Appointments Appointment Date:09/11/2022 04:30:00 PM Scheduled Provider:HARRIS OWLF MD Location:[facility] Appointment Type:PC OV [facility] Evaluation + Plan note Future Appointments Appointment Date:06/03/2023 03:00:00 PM Scheduled Provider:HARRIS WOLF MD Location:[facility] Appointment Type:PC OV Diagnostic Tests PendingProstate Specific Antigen 12/08/22 Future Scheduled TestsThyroid Stimulating Hormone 12/03/22Free T4 12/03/22Lipid Profile 06/05/23 [facility] Evaluation + Plan note Future Appointments Appointment Date:06/03/2023 03:00:00 PM Scheduled Provider:HARRIS WOLF MD Location:[facility] Appointment Type:PC Wellness [facility] Evaluation + Plan note Future Appointments Appointment Date:12/02/2023 03:00:00 PM Scheduled Provider:HARRIS WOLF MD Location:[facility] Appointment Type:PC OV Future Scheduled TestsThyroid Stimulating Hormone 06/03/23Free T4 06/03/23Lipid Profile 12/02/23Complete Metabolic Panel 12/02/23 [facility] Hospital course Narrative No data available for this section [facility] Hospital Discharge instructions No data available for this section [facility] Progress note No data available for this section [facility] Summary Purpose Family History No Family History Records FoundNo Family History Records Found No data available for this section No data available for this section No Family History Records Found No data available for this section No data available for this section No data available for this section No Family History Records Found Advance Directives No Advanced Directives Records FoundLatest Code Status on File Code Status Date Activated Date Inactivated Comments Full Code 01/14/2023 11:33 AM Additional Source Comments (unrecognized sect ion and content) No Status Records FoundNo Status Records FoundNo Status Records FoundNo Status Records Found INFORMATION SOURCE (unrecogn ized section and content) DATE CREATED AUTHOR AUTHOR'S ORGANIZ ATION 03/24/2018 [facility] DATE CREATED AUTHOR AUTHOR'S ORGANIZ ATION 05/30/2023 [facility] DATE CREATED AUTHOR AUTHOR'S ORGANIZ ATION 07/29/2023 [facility] ([place]) Care Team (unrecognized sect ion and content) Can Closing Machine Operator Relationship Specialty Start Date End Date Harris oWlf MD [address] [place] [address] PCP - General Family Medicine 01/14/23 Cristian Ramirez MD [address] [place] [id number] Cardiovascular Disease 11/24/22 Care Team (unrecognized sect ion and content) Care Team Personnel Name: Howie Marx PT Position: P3 Scheduling - Butcher Assistant Advanced Member Role: Other Name: HARRIS WOLF MD Position: P4 Physician - Primary Care Member Role: Primary Care Physician Address: Address: [facility] [place] [address]- Care Team Related Persons Name: BART AVILES Address: Home [address] [id number] [place], [place] [id number] [place] Care Team Personnel Name: Howie Marx PT Position: P3 Scheduling - Butcher Assistant Advanced Member Role: Other Name: HARRIS WOLF MD Position: P4 Physician - Primary Care Member Role: Primary Care Physician Address: Address: [address] [place] [address] Care Team Related Persons Name: BART AVILES Address: Home [address] [id number] [place], [place] [id number] [place] Care Team Personnel Name: Francisco J Brass Polisher Tiffanie PT Position: P3 Scheduling - Butcher Assistant Advanced Member Role: Other Name: HARRIS WOLF MD Position: P4 Physician - Primary Care Member Role: Primary Care Physician Address: Address: [address] [place] [address] Name: Cristiane Reynoso Position: Quality Review Member Role: Frequency Checker Care Team Related Persons Name: BART AVILES Address: [place] [address] [place] [address] [address] [id number] [place], [place] [id number] [place] FOR RECORDS PERTAINING TO PATIENTS WHO ARE OR HAVE BEEN ENROLLED IN A CHEMICAL DEPENDENCY/SUBSTANCEABUSE PROGRAM, SOME INFORMATION MAY BE OMITTED. This clinical summary was aggregated from multiple sources. Caution should be exercised in using it in the provision of clinical care. This summary normalizes information from multiple sources, and as a consequence, information in this document may materially change the coding, format and clinical context of patient data. In addition, data may be omitted in some cases. CLINICAL DECISIONS SHOULD BE BASED ON THE PRIMARY CLINICAL RECORDS. [facility]. provides no warranty or guarantee of the accuracy or completeness of information in this document.
== END | disposition home or self-care (01) ==
LOC: CT 14:51
PROVIDERS: PCP Family Medicine; Referring Provider Internal Medicine Pulmonary Disease; Visit Provider Internal Medicine Pulmonary Disease
DX: I10 Essential (primary) hypertension (principal); I48.0 Paroxysmal atrial fibrillation; G47.33 Obstructive sleep apnea (adult) (pediatric)
CPT/HCPCS: 71250